=== PATIENT | male | born 1960 | race African-American/Black ===

== ENCOUNTER 2017-01-12 12:06 | Inpatient (IN) | payer OTHER ==
[2017-01-12 13:11] VITALS: BMI 19.2
--- NOTE | 2017-01-12 15:05 | HP ---
COWS - Scale Resting Pulse: 0= [place] 80 or Below Sweatin=Flushed/Facial Moisture Restless Observation: 3= Extraneous Movement Pupil Size: 2= Moderately Dilated Bone or Joint Aches: 2= Severe Diffuse Aches Runny Nose/ Eye Tearin= Runny Nose/Eyes GI Upset > 30mins: 3= Vomiting/Diarrhea Tremor Observation: 2= Slight Tremor Visible Yawning Observation: 1= 1-2x During Session Anxiety or Irritability: 2=Irritable/Anxious Goose Flesh Skin: 0=Smooth Skin COWS Score: 19 Admission ROS BHS - HPI Chief Complaint: i need help to stop using heroin and cocaine Allergies/Adverse Reactions: Allergies Allergy/AdvReac Type Severity Reaction Status Date / Time No Known Allergies Allergy Verified 01/12/17 14:58 History of Present Illness: this 56 years old male with heroin and cocaine dependence,withdrawal symptom, last detox 01/16/16 to 01/21/16 nicotine dependence hiv sine 1997 several admissions in detox before longest period sobriety 1 year Exam Limitations: No Limitations - Ebola screening Have you traveled outside of the country in the last 21 days: No Have you had contact with anyone from an Ebola affected area: No Have you been sick,other than usual withdrawal symptoms: No Do you have a fever: No - Review of Systems Constitutional: Chills, Diaphoresis, Loss of Appetite, Malaise, Night Sweats, Changes in sleep, Weakness, Unintentional Wgt. Loss EENT: reports: Tearing, Nose Congestion Respiratory: reports: Cough (for 2 weeks with yellowish mucous) Cardiac: reports: No Symptoms Reported GI: reports: Diarrhea, Nausea, Vomiting, Abdominal cramping : reports: No Symptoms Reported Musculoskeletal: reports: Back Pain, Joint Pain, Muscle Pain, Joint Stiffness Integumentary: reports: Dryness Neuro: reports: Headache, Tremors Endocrine: reports: No Symptoms Reported Hematology: reports: No Symptoms Reported, Other (hiv) Psychiatric: reports: No Sypmtoms Reported, Mood/Affect Appropiate, Orientated x3 Patient History - Patient Medical History Hx Anemia: No Hx Asthma: No Hx Chronic Obstructive Pulmonary Disease (COPD): No Hx Cancer: No Hx Cardiac Disorders: No Hx Congestive Heart Failure: No Hx Hypertension: No Hx Hypercholesterolemia: No Hx Pacemaker: No HX Cerebrovascular Accident: No Hx Seizures: No Hx Dementia: No Hx Diabetes: No Hx Gastrointestinal Disorders: No Hx Liver Disease: No Hx Genitourinary Disorders: No Hx Sexually Transmitted Disorders: No Hx Renal Disease (ESRD): No Hx Thyroid Disease: No Hx Human Immunodeficiency Virus (HIV): Yes (since 1997, non compliance,no medication for 1 month, ) Hx Hepatitis C: No Hx Depression: No Hx Suicide Attempt: No Hx Bipolar Disorder: No Hx Schizophrenia: No Other Medical History: no suicidal,no homicidal,weight loss - Patient Surgical History Past Surgical History: Yes Hx Neurologic Surgery: No Hx Cataract Extraction: No Hx Cardiac Surgery: No Hx Lung Surgery: No Hx Breast Surgery: No Hx Breast Biopsy: No Hx Abdominal Surgery: No Hx Appendectomy: No Hx Cholecystectomy: No Hx Genitourinary Surgery: No Hx Section: No Hx Orthopedic Surgery: No Other Surgical History: removal of lymph node, right side of neck in 1990 Anesthesia Reaction: No - PPD History Previous Implant?: Yes Documented Results: Negative w/proof Implanted On Prior [facility] Admission?: Yes Date: 01/18/16 Results: 0 mm PPD to be Administered?: No - Smoking Cessation Smoking history: Current every day smoker Have you smoked in the past 12 months: Yes Aproximately how many cigarettes per day: 10 Cigars Per Day: 0 Hx Chewing Tobacco Use: No Initiated information on smoking cessation: Yes 'Breaking Loose' booklet given: 01/12/17 - Substance & Tx. History Hx Alcohol Use: No Hx Substance Use: Yes Substance Use Type: Cocaine, Heroin Hx Substance Use Treatment: Yes ([facility] 01/16/16 to 01/21/16) - Substances Abused Heroin Route: Inhalation Frequency: Daily Amount used: 3 bags Age of first use: 55 Date of Last Use: 01/11/17 Crack Route: Smoking Frequency: Daily Amount used: $60 Age of first use: 36 Date of Last Use: 01/12/17 Family Disease History - Family Disease History Family History: Denies Family Disease History: Other: Grandparent (GGM W/ HTN-) Admission Physical Exam [facility] - Vital Signs Vital Signs: Vital Signs - 24 hr 01/12/17 13:07 Temperature 97.1 F L Pulse Rate 74 Respiratory 18 Rate Blood Pressure 120/86 - Physical General Appearance: Yes: Moderate Distress, Tremorous, Sweating, Anxious HEENTM: Yes: Normocephalic, Pharynx Normal, Nasal Congestion Respiratory: Yes: Lungs Clear, Normal Breath Sounds, No Respiratory Distress Neck: Yes: Within Normal Limits, Supple, Trachea in good position Breast: Yes: Within Normal Limits Cardiology: Yes: Within Normal Limits, Regular Rhythm, Regular Rate, S1, S2 Abdominal: Yes: Within Normal Limits, Normal Bowel Sounds, Non Tender, Flat, Soft Genitourinary: Yes: Within Normal Limits Back: Yes: Muscle Spasm Musculoskeletal: Yes: Back pain, Joint Stiffness, Muscle Pain Extremities: Yes: Normal Range of Motion, Tremors Neurological: Yes: Within Normal Limits, sales vendor II-XII NML intact, Fully Oriented, Alert, Motor Strength 5/5 Integumentary: Yes: Dry Lymphatic: Yes: Within Normal Limits - Diagnostic (1) Cocaine dependence Current Visit: No Status: Acute Comment: . (2) Nicotine dependence Current Visit: No Status: Acute Qualifiers: Nicotine product type: cigarettes Substance use status: uncomplicated Qualified Code(s): F17.210 - Nicotine dependence, cigarettes, uncomplicated Comment: . (3) HIV (human immunodeficiency virus infection) Current Visit: No Status: Chronic Comment: . (4) Opioid dependence with withdrawal Current Visit: No Status: Chronic (5) Rash Current Visit: No Status: Chronic (6) Weight loss Current Visit: Yes Status: Acute (7) Arthritis Current Visit: Yes Status: Acute (8) Use of cane as ambulatory aid Current Visit: Yes Status: Acute Cleared for Admission [facility] - Detox or Rehab [facility] Level of Care: Medically Managed Detox Regimen/Protocol: Methadone [facility] Breath Alcohol Content Breath Alcohol Content: 0 Urine Drug Screen - Results Drug Screen Negative: No Urine Drug Screen Results: PRADEEP-Cocaine, OPI-Opiates
[2017-01-12] MEDS ORDERED: P-EPHED 60MG/TRIPROLIDI 2.5MG TABLET PO PRN (15:19)
[2017-01-12] MEDS ORDERED: ACETAMINOPHEN 325 MG TABLET (FP) PO PRN (15:19)
[2017-01-12] MEDS ORDERED: MAGNESIUM HYDROX 2400MG/30ML ORAL SUSPENSION 30 ML CUP PO PRN (15:19)
[2017-01-12] MEDS ORDERED: MENTHOL/PHENOL 1 EACH UD MM PRN (15:19)
[2017-01-12] MEDS ORDERED: hydrOXYzine PAMOATE 50 MG CAPSULE (FP) PO PRN (15:19)
[2017-01-12] MEDS ORDERED: guaiFENesin/D-METHORPHAN HB 10 ML UNIT-DOSE CUPS PO PRN (15:19)
[2017-01-12] MEDS ORDERED: MAGNESIUM CITRATE 300 ML BOTTLE PO PRN (15:19)
[2017-01-12] MEDS ORDERED: LOPERAMIDE HCL 2 MG CAPSULE PO PRN (15:19)
[2017-01-12] MEDS ORDERED: MAG HYDROX/AL HYDROX/SIMETH 30 ML UNIT-DOSE CUP PO PRN (15:19)
[2017-01-12] MEDS ORDERED: METHADONE HCL 10 MG TABLET (FOR DETOX USE ONLY) PO ONE ×2 (15:29→23:00)
[2017-01-12] MEDS: diazePAM 5 MG TABLET PO PRN (17:22)
[2017-01-12] MEDS: NICOTINE 21 MG/24 HOURS TOPICAL PATCH TD SCH (18:31)
[2017-01-12 18:58] LABS: URINE APPEARANCE CLEAR; URINE BILIRUBIN NEGATIVE (NEGATIVE); URINE BLOOD NEGATIVE (NEGATIVE); URINE COLOR DKYELLOW; URINE GLUCOSE (UA) NEGATIVE (NEGATIVE); URINE KETONE NEGATIVE (NEGATIVE); URINE LEUK ESTERASE NEGATIVE (NEGATIVE); URINE NITRITE NEGATIVE (NEGATIVE); URINE UROBILINOGEN 2.0 E.U/dl E.U./dl (0.2-1.0)
[2017-01-12 19:08] LABS: URINE PROTEIN 1+ (NEGATIVE)
[2017-01-12 19:32] LABS: URINE MUCUS MANY; URINE RBC 1 /hpf (0-3); URINE WBC 1 /hpf (3-5)
[2017-01-12 21:05] LABS: MCH 30.2 pg (25.7-33.7); MCHC 33.3 g/dl (32.0-35.9); MEAN CELL VOLUME 90.6 fl (80-96); MEAN PLT VOLUME 9.8 fl (7.5-11.1); WHITE BLOOD COUNT 2.9 K/mm3 (4.0-10.0)
[2017-01-12] MEDS: THIAMINE HCL 100 MG TABLET (FP) PO SCH (22:19)
[2017-01-12] MEDS: diphenhydrAMINE HCL 50 MG CAPSULE PO PRN (22:20)
[2017-01-13 02:27] LABS: PLATELET COMMENT2 UNABLE TO ENUMERATE; PLATELET COMMENT3 NO CLOTTING DETECTED; PLATELET ESTIMATE ADEQUATE (NORMAL)
[2017-01-13 02:32] LABS: ANISOCYTOSIS FEW; MICROCYTOSIS FEW
[2017-01-13] MEDS ORDERED: METHADONE HCL 10 MG TABLET (FOR DETOX USE ONLY) PO ONE (10:00)
--- NOTE | 2017-01-13 10:27 | PN ---
S COWS - Scale Resting Pulse: 0= [place] 80 or Below Sweatin= Chills/Flushing Restless Observation: 3= Extraneous Movement Pupil Size: 2= Moderately Dilated Bone or Joint Aches: 4=Acute Joint/Muscle Pain Runny Nose/ Eye Tearin= Nasal Congestion GI Upset > 30mins: 1= Stomach Cramp Tremor Observation of Outstretched Hands: 1= Tremor [place], Not Seen Yawning Observation: 1= 1-2x During Session Anxiety or Irritability: 2=Irritable/Anxious Goose Flesh Skin: 0=Smooth Skin COWS Score: 16 S Progress Note (SOAP) Subjective: ANXIETY,SWEATS, Objective: 01/13/17 10:24 Vital Signs Temperature 98.2 F 01/13/17 09:37 Pulse Rate 66 01/13/17 09:37 Respiratory Rate 18 01/13/17 09:37 Blood Pressure 130/91 01/13/17 09:37 O2 Sat by Pulse Oximetry (%) Laboratory Last Values WBC 2.9 K/mm3 (4.0-10.0) L 01/12/17 13:00 RBC 3.91 M/mm3 (4.00-5.60) L 01/12/17 13:00 Hgb 11.8 GM/dL (11.7-16.9) 01/12/17 13:00 Hct 35.4 % (35.4-49) 01/12/17 13:00 MCV 90.6 fl (80-96) 01/12/17 13:00 MCHC 33.3 g/dl (32.0-35.9) 01/12/17 13:00 RDW 14.0 % (11.9-15.9) D 01/12/17 13:00 Plt Count Not Reportable 01/12/17 13:00 MPV 9.8 fl (7.5-11.1) D 01/12/17 13:00 Neutrophils % 36.0 % (42.8-82.8) L D 01/12/17 13:00 Lymphocytes % 40.0 % (8-40) D 01/12/17 13:00 Monocytes % 12.0 % (3.8-10.2) H 01/12/17 13:00 Eosinophils % 10.0 % (0-4.5) H D 01/12/17 13:00 Reactive Lymphocytes 2 % (0-80) 01/12/17 13:00 Platelet Estimate Adequate (NORMAL) 01/12/17 13:00 Platelet Comment Marked plt clumping 01/12/17 13:00 Platelet Comment Unable to enumerate 01/12/17 13:00 Anisocytosis Few 01/12/17 13:00 Microcytosis Few 01/12/17 13:00 Urine Color Dkyellow 01/12/17 16:00 Urine Appearance Clear 01/12/17 16:00 Urine pH 5.0 (5.0-8.0) 01/12/17 16:00 Ur Specific [place] 1.030 (1.001-1.035) 01/12/17 16:00 Urine Protein 1+ (NEGATIVE) H 01/12/17 16:00 Urine Glucose (UA) Negative (NEGATIVE) 01/12/17 16:00 Urine Ketones Negative (NEGATIVE) 01/12/17 16:00 Urine Blood Negative (NEGATIVE) 01/12/17 16:00 Urine Nitrite Negative (NEGATIVE) 01/12/17 16:00 Urine Bilirubin Negative (NEGATIVE) 01/12/17 16:00 Urine Urobilinogen 2.0 e.u/dl E.U./dl (0.2-1.0) 01/12/17 16:00 Ur Leukocyte Esterase Negative (NEGATIVE) 01/12/17 16:00 Urine RBC 1 /hpf (0-3) 01/12/17 16:00 Urine WBC 1 /hpf (3-5) 01/12/17 16:00 Ur Epithelial Cells Rare /hpf (FEW) 01/12/17 16:00 Urine Mucus Many 01/12/17 16:00 Hepatitis C Antibody 0.3 s/co ratio (0.0-0.9) 01/12/17 15:00 Assessment: 01/13/17 10:26 WITHDRAWAL SX Plan: CONTINUE DETOX INCREASE PO FLUIDS
[2017-01-13] MEDS: PRENATAL VITAMINS W/ FOLIC ACID TABLET (FP) PO SCH (10:28)
[2017-01-13] MEDS: NICOTINE 21 MG/24 HOURS TOPICAL PATCH TD SCH (10:29)
[2017-01-13] MEDS: diazePAM 5 MG TABLET PO PRN ×3 (10:30→22:25)
[2017-01-13 12:09] LABS: ALBUMIN 3.4 g/dl (3.4-5.0); ALK PHOS 71 U/L (45-117); ANION GAP 8 (8-16); BILIRUBIN,TOTAL 0.3 mg/dL (0.2-1.0); CO2 29 mmol/L (21-32); CREATININE 0.9 mg/dL (0.7-1.3); GLUCOSE,RANDOM 57 mg/dL (74-106); SGOT/AST 23 U/L (15-37); SGPT/ALT 16 U/L (12-78)
[2017-01-13] MEDS: IBUPROFEN 400 MG TABLET (FP) PO PRN (15:24)
[2017-01-13] MEDS: THIAMINE HCL 100 MG TABLET (FP) PO SCH (22:25)
[2017-01-14] MEDS: diazePAM 5 MG TABLET PO PRN ×4 (06:05→22:28)
[2017-01-14] MEDS ORDERED: METHADONE HCL 5 MG TABLET (FOR DETOX USE ONLY) PO ONE (10:00)
[2017-01-14] MEDS: NICOTINE 21 MG/24 HOURS TOPICAL PATCH TD SCH (10:29)
[2017-01-14] MEDS: PRENATAL VITAMINS W/ FOLIC ACID TABLET (FP) PO SCH (10:29)
--- NOTE | 2017-01-14 11:12 | PN ---
BHS COWS - Scale Resting Pulse: 1= [place] 81-100 Sweatin= Chills/Flushing Restless Observation: 3= Extraneous Movement Pupil Size: 2= Moderately Dilated Bone or Joint Aches: 4=Acute Joint/Muscle Pain Runny Nose/ Eye Tearin= Nasal Congestion GI Upset > 30mins: 0= None Tremor Observation of Outstretched Hands: 2= Slight Tremor Visible Yawning Observation: 1= 1-2x During Session Anxiety or Irritability: 2=Irritable/Anxious Goose Flesh Skin: 0=Smooth Skin COWS Score: 17 BHS Progress Note (SOAP) Subjective: ANXIETY,SWEATS, TREMORS. Objective: 01/14/17 11:12 Vital Signs Temperature 96.7 F L 01/14/17 09:38 Pulse Rate 89 01/14/17 09:38 Respiratory Rate 20 01/14/17 09:38 Blood Pressure 115/82 01/14/17 09:38 O2 Sat by Pulse Oximetry (%) Assessment: 01/14/17 11:12 WITHDRAWAL SX Plan: CONTINUE DETOX
--- NOTE | 2017-01-14 13:20 | EKG ---
Test Reason : Blood Pressure : / mmHG Vent. Rate : 062 BPM Atrial Rate : 062 BPM P-R Int : 130 ms QRS Dur : 070 ms QT Int : 384 ms P-R-T Axes : 081 072 083 degrees QTc Int : 389 ms NORMAL SINUS RHYTHM technically difficult study due to artifacts. POSSIBLE LEFT ATRIAL ENLARGEMENT BORDERLINE ECG NO PREVIOUS ECGS AVAILABLE Confirmed by MANI BELLO MD ([id number]) on 01/14/2017 1:19:50 PM Referred By: Confirmed By:MANI BELLO MD
[2017-01-14] MEDS: THIAMINE HCL 100 MG TABLET (FP) PO SCH (22:26)
[2017-01-14] MEDS: diphenhydrAMINE HCL 50 MG CAPSULE PO PRN (22:28)
[2017-01-15] MEDS ORDERED: METHADONE HCL 5 MG TABLET (FOR DETOX USE ONLY) PO ONE (10:00)
[2017-01-15] MEDS: PRENATAL VITAMINS W/ FOLIC ACID TABLET (FP) PO SCH (10:33)
[2017-01-15] MEDS: NICOTINE 21 MG/24 HOURS TOPICAL PATCH TD SCH (10:33)
--- NOTE | 2017-01-15 12:30 | PN ---
S Progress Note (SOAP) Subjective: ANXIETY,SWEATS,FATIGUE. Objective: 01/15/17 12:30 Vital Signs Temperature 98.3 F 01/15/17 06:52 Pulse Rate 97 H 01/15/17 10:00 Respiratory Rate 18 01/15/17 10:00 Blood Pressure 112/75 01/15/17 10:00 O2 Sat by Pulse Oximetry (%) Laboratory Last Values WBC 2.9 K/mm3 (4.0-10.0) L 01/12/17 13:00 RBC 3.91 M/mm3 (4.00-5.60) L 01/12/17 13:00 Hgb 11.8 GM/dL (11.7-16.9) 01/12/17 13:00 Hct 35.4 % (35.4-49) 01/12/17 13:00 MCV 90.6 fl (80-96) 01/12/17 13:00 MCHC 33.3 g/dl (32.0-35.9) 01/12/17 13:00 RDW 14.0 % (11.9-15.9) D 01/12/17 13:00 Plt Count Not Reportable 01/12/17 13:00 MPV 9.8 fl (7.5-11.1) D 01/12/17 13:00 Neutrophils % 36.0 % (42.8-82.8) L D 01/12/17 13:00 Lymphocytes % 40.0 % (8-40) D 01/12/17 13:00 Monocytes % 12.0 % (3.8-10.2) H 01/12/17 13:00 Eosinophils % 10.0 % (0-4.5) H D 01/12/17 13:00 Reactive Lymphocytes 2 % (0-80) 01/12/17 13:00 Platelet Estimate Adequate (NORMAL) 01/12/17 13:00 Platelet Comment Marked plt clumping 01/12/17 13:00 Platelet Comment Unable to enumerate 01/12/17 13:00 Anisocytosis Few 01/12/17 13:00 Microcytosis Few 01/12/17 13:00 Sodium 141 mmol/L (136-145) 01/12/17 13:00 Potassium 4.1 mmol/L (3.5-5.1) 01/12/17 13:00 Chloride 104 mmol/L (98-107) 01/12/17 13:00 Carbon Dioxide 29 mmol/L (21-32) 01/12/17 13:00 Anion Gap 8 (8-16) 01/12/17 13:00 BUN 18 mg/dL (7-18) D 01/12/17 13:00 Creatinine 0.9 mg/dL (0.7-1.3) 01/12/17 13:00 Creat Clearance w eGFR > 60 (>60) 01/12/17 13:00 Random Glucose 57 mg/dL (74-106) L D 01/12/17 13:00 Calcium 9.0 mg/dL (8.5-10.1) 01/12/17 13:00 Total Bilirubin 0.3 mg/dL (0.2-1.0) D 01/12/17 13:00 AST 23 U/L (15-37) D 01/12/17 13:00 ALT 16 U/L (12-78) 01/12/17 13:00 Alkaline Phosphatase 71 U/L (45-117) 01/12/17 13:00 Total Protein 9.0 g/dl (6.4-8.2) H 01/12/17 13:00 Albumin 3.4 g/dl (3.4-5.0) 01/12/17 13:00 Urine Color Dkyellow 01/12/17 16:00 Urine Appearance Clear 01/12/17 16:00 Urine pH 5.0 (5.0-8.0) 01/12/17 16:00 Ur Specific [place] 1.030 (1.001-1.035) 01/12/17 16:00 Urine Protein 1+ (NEGATIVE) H 01/12/17 16:00 Urine Glucose (UA) Negative (NEGATIVE) 01/12/17 16:00 Urine Ketones Negative (NEGATIVE) 01/12/17 16:00 Urine Blood Negative (NEGATIVE) 01/12/17 16:00 Urine Nitrite Negative (NEGATIVE) 01/12/17 16:00 Urine Bilirubin Negative (NEGATIVE) 01/12/17 16:00 Urine Urobilinogen 2.0 e.u/dl E.U./dl (0.2-1.0) 01/12/17 16:00 Ur Leukocyte Esterase Negative (NEGATIVE) 01/12/17 16:00 Urine RBC 1 /hpf (0-3) 01/12/17 16:00 Urine WBC 1 /hpf (3-5) 01/12/17 16:00 Ur Epithelial Cells Rare /hpf (FEW) 01/12/17 16:00 Urine Mucus Many 01/12/17 16:00 RPR Titer Nonreactive (NONREACTIVE) 01/12/17 13:00 Hepatitis C Antibody 0.3 s/co ratio (0.0-0.9) 01/12/17 15:00 Assessment: 01/15/17 12:30 WITHDRAWAL SX Plan: CONTINUE DETOX
[2017-01-15] MEDS: IBUPROFEN 400 MG TABLET (FP) PO PRN (17:38)
[2017-01-15] MEDS: diphenhydrAMINE HCL 50 MG CAPSULE PO PRN (22:22)
[2017-01-15] MEDS: THIAMINE HCL 100 MG TABLET (FP) PO SCH (22:22)
[2017-01-16] MEDS ORDERED: METHADONE HCL 10 MG TABLET (FOR DETOX USE ONLY) PO ONE (10:00)
[2017-01-16] MEDS: NICOTINE 21 MG/24 HOURS TOPICAL PATCH TD SCH (10:31)
[2017-01-16] MEDS: PRENATAL VITAMINS W/ FOLIC ACID TABLET (FP) PO SCH (10:31)
--- NOTE | 2017-01-16 11:28 | PN ---
BHS Progress Note (SOAP) Subjective: FATIGUE, ANXIETY,IRRITABILITY. Objective: 01/16/17 11:27 Vital Signs Temperature 97.4 F L 01/16/17 10:38 Pulse Rate 56 L 01/16/17 10:38 Respiratory Rate 16 01/16/17 10:38 Blood Pressure 123/81 01/16/17 10:38 O2 Sat by Pulse Oximetry (%) Assessment: 01/16/17 11:27 WITHDRAWAL SX Plan: CONTINUE DETOX
[2017-01-16] MEDS: IBUPROFEN 400 MG TABLET (FP) PO PRN (13:19)
[2017-01-16] MEDS: THIAMINE HCL 100 MG TABLET (FP) PO SCH (22:26)
[2017-01-16] MEDS: diphenhydrAMINE HCL 50 MG CAPSULE PO PRN (22:26)
[2017-01-17] MEDS ORDERED: METHADONE HCL 5 MG TABLET (FOR DETOX USE ONLY) PO ONE (06:00)
[2017-01-17 06:44] VITALS: BP 120/76; PULSE 97; TEMP 95.9
--- NOTE | 2017-01-17 15:50 | DS ---
[facility] Detox Discharge Summary Admission Date: 01/12/17 Discharge Date: 01/17/17 - History Present History: Cocaine Dependence, Opioid Dependence Additional Comments: ADVISED PATIENT TO FOLLOW-UP WITH [facility] / REHAB MEDICAL PROVIDER AFTER DISCHARGE FROM DETOX FOR GENERAL MEDICAL ASSESSMENT AND FOR ANY ABNORMAL ADMISSION LAB VALUES. Pertinent Past History: HIV +. - Physical Exam Results Vital Signs: Vital Signs Temperature 95.9 F L 01/17/17 06:43 Pulse Rate 97 H 01/17/17 06:43 Respiratory Rate 16 01/17/17 06:43 Blood Pressure 120/76 01/17/17 06:43 O2 Sat by Pulse Oximetry (%) Pertinent Admission Physical Exam Findings: WITHDRAWAL SYMPTOMS. Laboratory Last Values WBC 2.9 K/mm3 (4.0-10.0) L 01/12/17 13:00 RBC 3.91 M/mm3 (4.00-5.60) L 01/12/17 13:00 Hgb 11.8 GM/dL (11.7-16.9) 01/12/17 13:00 Hct 35.4 % (35.4-49) 01/12/17 13:00 MCV 90.6 fl (80-96) 01/12/17 13:00 MCHC 33.3 g/dl (32.0-35.9) 01/12/17 13:00 RDW 14.0 % (11.9-15.9) D 01/12/17 13:00 Plt Count Not Reportable 01/12/17 13:00 MPV 9.8 fl (7.5-11.1) D 01/12/17 13:00 Neutrophils % 36.0 % (42.8-82.8) L D 01/12/17 13:00 Lymphocytes % 40.0 % (8-40) D 01/12/17 13:00 Monocytes % 12.0 % (3.8-10.2) H 01/12/17 13:00 Eosinophils % 10.0 % (0-4.5) H D 01/12/17 13:00 Reactive Lymphocytes 2 % (0-80) 01/12/17 13:00 Platelet Estimate Adequate (NORMAL) 01/12/17 13:00 Platelet Comment Marked plt clumping 01/12/17 13:00 Platelet Comment Unable to enumerate 01/12/17 13:00 Anisocytosis Few 01/12/17 13:00 Microcytosis Few 01/12/17 13:00 Sodium 141 mmol/L (136-145) 01/12/17 13:00 Potassium 4.1 mmol/L (3.5-5.1) 01/12/17 13:00 Chloride 104 mmol/L (98-107) 01/12/17 13:00 Carbon Dioxide 29 mmol/L (21-32) 01/12/17 13:00 Anion Gap 8 (8-16) 01/12/17 13:00 BUN 18 mg/dL (7-18) D 01/12/17 13:00 Creatinine 0.9 mg/dL (0.7-1.3) 01/12/17 13:00 Creat Clearance w eGFR > 60 (>60) 01/12/17 13:00 Random Glucose 57 mg/dL (74-106) L D 01/12/17 13:00 Calcium 9.0 mg/dL (8.5-10.1) 01/12/17 13:00 Total Bilirubin 0.3 mg/dL (0.2-1.0) D 01/12/17 13:00 AST 23 U/L (15-37) D 01/12/17 13:00 ALT 16 U/L (12-78) 01/12/17 13:00 Alkaline Phosphatase 71 U/L (45-117) 01/12/17 13:00 Total Protein 9.0 g/dl (6.4-8.2) H 01/12/17 13:00 Albumin 3.4 g/dl (3.4-5.0) 01/12/17 13:00 Urine Color Dkyellow 01/12/17 16:00 Urine Appearance Clear 01/12/17 16:00 Urine pH 5.0 (5.0-8.0) 01/12/17 16:00 Ur Specific [place] 1.030 (1.001-1.035) 01/12/17 16:00 Urine Protein 1+ (NEGATIVE) H 01/12/17 16:00 Urine Glucose (UA) Negative (NEGATIVE) 01/12/17 16:00 Urine Ketones Negative (NEGATIVE) 01/12/17 16:00 Urine Blood Negative (NEGATIVE) 01/12/17 16:00 Urine Nitrite Negative (NEGATIVE) 01/12/17 16:00 Urine Bilirubin Negative (NEGATIVE) 01/12/17 16:00 Urine Urobilinogen 2.0 e.u/dl E.U./dl (0.2-1.0) 01/12/17 16:00 Ur Leukocyte Esterase Negative (NEGATIVE) 01/12/17 16:00 Urine RBC 1 /hpf (0-3) 01/12/17 16:00 Urine WBC 1 /hpf (3-5) 01/12/17 16:00 Ur Epithelial Cells Rare /hpf (FEW) 01/12/17 16:00 Urine Mucus Many 01/12/17 16:00 RPR Titer Nonreactive (NONREACTIVE) 01/12/17 13:00 Hepatitis C Antibody 0.3 s/co ratio (0.0-0.9) 01/12/17 15:00 LABS NOTED. - Treatment Hospital Course: Detox Protocol Followed, Detoxed Safely, Responded well, Discharged Condition Good Patient has Accepted a Rehab Referral to: NO. - Medication Discharge Medications: Ambulatory Orders NK [No Known Home Medication] 01/12/17 - Diagnosis (1) Arthritis Status: Chronic (2) Cocaine dependence Status: Acute (3) Nicotine dependence Status: Chronic Qualifiers: Nicotine product type: cigarettes Substance use status: uncomplicated Qualified Code(s): F17.210 - Nicotine dependence, cigarettes, uncomplicated (4) Use of cane as ambulatory aid Status: Chronic (5) Weight loss Status: Acute (6) Drug-induced mood disorder Status: Chronic (7) Dry skin Status: Chronic (8) HIV (human immunodeficiency virus infection) Status: Chronic (9) Opioid dependence with withdrawal Status: Acute - AMA Did Patient Leave Against Medical Advice: No
== END 2017-01-17 09:41 | disposition home or self-care (01) | DRG 773 ==
LOC: YASAS 12:06 → Y3N 15:21
PROVIDERS: ADMIT Internal Medicine Addiction Medicine; ATTEND Internal Medicine
PROC: HZ2ZZZZ Detoxification Services for Substance Abuse Treatment (ICD-10-PCS; principal; 2017-01-17)
DX: F11.23 Opioid dependence with withdrawal (principal); F14.20 Cocaine dependence, uncomplicated; F17.210 Nicotine dependence, cigarettes, uncomplicated; F19.24 Other psychoactive substance dependence with psychoactive substance-induced mood disorder; L85.3 Xerosis cutis; Z21 Asymptomatic human immunodeficiency virus [HIV] infection status; R63.4 Abnormal weight loss; Z68.1 Body mass index [BMI] 19.9 or less, adult; R26.2 Difficulty in walking, not elsewhere classified
CPT/HCPCS: 36415; 80053; 81003; 81015; 85027; 86593; 93005; 93010

== ENCOUNTER 2017-03-11 16:46 | Inpatient (IN) | payer OTHER ==
[2017-03-11 18:00] VITALS: BMI 19.5
[2017-03-11] MEDS ORDERED: MAGNESIUM HYDROX 2400MG/30ML ORAL SUSPENSION 30 ML CUP PO PRN (19:02)
[2017-03-11] MEDS ORDERED: NICOTINE POLACRILEX 2 MG GUM BC PRN (19:02)
[2017-03-11] MEDS ORDERED: P-EPHED 60MG/TRIPROLIDI 2.5MG TABLET PO PRN (19:02)
[2017-03-11] MEDS ORDERED: MAG HYDROX/AL HYDROX/SIMETH 30 ML UNIT-DOSE CUP PO PRN (19:02)
[2017-03-11] MEDS ORDERED: MAGNESIUM CITRATE 300 ML BOTTLE PO PRN (19:02)
[2017-03-11] MEDS ORDERED: IBUPROFEN 400 MG TABLET (FP) PO PRN (19:02)
[2017-03-11] MEDS ORDERED: guaiFENesin/D-METHORPHAN HB 10 ML UNIT-DOSE CUPS PO PRN (19:02)
[2017-03-11] MEDS ORDERED: LOPERAMIDE HCL 2 MG CAPSULE PO PRN (19:02)
[2017-03-11] MEDS ORDERED: METHADONE HCL 10 MG TABLET (FOR DETOX USE ONLY) PO ONE ×2 (19:02→23:00)
[2017-03-11] MEDS ORDERED: MENTHOL/PHENOL 1 EACH UD MM PRN (19:02)
--- NOTE | 2017-03-11 19:02 | HP ---
COWS - Scale Resting Pulse: 0= [place] 80 or Below Sweatin= Chills/Flushing Restless Observation: 3= Extraneous Movement Pupil Size: 0= Normal to Room Light Bone or Joint Aches: 2= Severe Diffuse Aches Runny Nose/ Eye Tearin= Runny Nose/Eyes GI Upset > 30mins: 2= Nausea/Diarrhea Tremor Observation: 2= Slight Tremor Visible Yawning Observation: 0= None Anxiety or Irritability: 2=Irritable/Anxious Goose Flesh Skin: 0=Smooth Skin COWS Score: 14 Admission [facility] Chief Complaint: WITHDRAWAL SX Allergies/Adverse Reactions: Allergies Allergy/AdvReac Type Severity Reaction Status Date / Time No Known Allergies Allergy Verified 03/11/17 18:36 History of Present Illness: 56 YEARS OLD MALE WITH LONG HISTORY OF OPIOID NICOTINE DEPENDENCE HAS HIV AND DEPRESSION IS ADMITTED TO DETOX Exam Limitations: No Limitations - Ebola screening Have you traveled outside of the country in the last 21 days: No Have you had contact with anyone from an Ebola affected area: No Have you been sick,other than usual withdrawal symptoms: No Do you have a fever: No - Review of Systems Constitutional: Chills, Loss of Appetite, Changes in sleep, Unintentional Wgt. Loss, Unexplained wgt Loss EENT: reports: Dental Problems (DENTURE UPPER AND LOWER AT HOME ABLE TO CHEW FOOD), Other (EYE GLASSES) Respiratory: reports: No Symptoms reported Cardiac: reports: No Symptoms Reported GI: reports: Nausea, Poor Appetite, Poor Fluid Intake, Abdominal cramping : reports: No Symptoms Reported Musculoskeletal: reports: No Symptoms Reported Integumentary: reports: No Symptoms Reported Neuro: reports: Tremors Endocrine: reports: No Symptoms Reported Hematology: reports: No Symptoms Reported Psychiatric: reports: Judgement Intact, Orientated x3, Depressed Other Systems: Reviewed and Negative Patient History - Patient Medical History Hx Anemia: No Hx Asthma: No Hx Chronic Obstructive Pulmonary Disease (COPD): No Hx Cancer: No Hx Cardiac Disorders: No Hx Congestive Heart Failure: No Hx Hypertension: No Hx Hypercholesterolemia: No Hx Pacemaker: No HX Cerebrovascular Accident: No Hx Seizures: No Hx Dementia: No Hx Diabetes: No Hx Gastrointestinal Disorders: No Hx Liver Disease: No Hx Genitourinary Disorders: No Hx Sexually Transmitted Disorders: No Hx Renal Disease (ESRD): No Hx Thyroid Disease: No Hx Human Immunodeficiency Virus (HIV): Yes (since 1997, non compliance,no medication for 1 month, ) Hx Hepatitis C: No Hx Depression: Yes Hx Suicide Attempt: No Hx Bipolar Disorder: No Hx Schizophrenia: No - Patient Surgical History Past Surgical History: Yes Hx Neurologic Surgery: No Hx Cataract Extraction: No Hx Cardiac Surgery: No Hx Lung Surgery: No Hx Breast Surgery: No Hx Breast Biopsy: No Hx Abdominal Surgery: No Hx Appendectomy: No Hx Cholecystectomy: No Hx Genitourinary Surgery: No Hx Orthopedic Surgery: No Other Surgical History: removal of lymph node, right side of neck in 1990 Anesthesia Reaction: No - PPD History Previous Implant?: Yes Documented Results: Negative w/proof Implanted On Prior [facility] Admission?: Yes Date: 01/18/16 Results: 0 mm PPD to be Administered?: Yes - Smoking Cessation Smoking history: Current every day smoker Have you smoked in the past 12 months: Yes Aproximately how many cigarettes per day: 10 Cigars Per Day: 0 Hx Chewing Tobacco Use: No Initiated information on smoking cessation: Yes 'Breaking Loose' booklet given: 03/11/17 - Substance & Tx. History Hx Alcohol Use: No Hx Substance Use: Yes Substance Use Type: Cocaine, Opiates Hx Substance Use Treatment: Yes - Substances Abused Cocaine Route: Smoking Frequency: Daily Amount used: $60 Age of first use: 26 Date of Last Use: 03/10/17 Heroin Route: Inhalation Frequency: Daily Amount used: 6 bags Age of first use: 31 Date of Last Use: 03/10/17 Family Disease History - Family Disease History Family Disease History: Other: Grandparent (GGM W/ HTN-), Father ( ) Admission Physical Exam S - Vital Signs Vital Signs: Vital Signs - 24 hr 03/11/17 17:46 Temperature 98.6 F Pulse Rate 72 Respiratory 18 Rate Blood Pressure 124/81 - Physical General Appearance: Yes: Appropriately Dressed, Mild Distress, Thin, Tremorous, Irritable, Sweating, Anxious HEENTM: Yes: Hearing grossly Normal, Normal ENT Inspection, Normocephalic, Normal Voice Respiratory: Yes: Chest Non-Tender, Lungs Clear, Normal Breath Sounds, No Respiratory Distress, No Accessory Muscle Use Neck: Yes: Supple, Trachea in good position Breast: Yes: Breasts Symetrical Cardiology: Yes: Regular Rhythm, Regular Rate, S1, S2 Abdominal: Yes: Non Tender, Soft Genitourinary: Yes: Within Normal Limits Back: Yes: Normal Inspection Musculoskeletal: Yes: full range of Motion, Gait Steady, Back pain, Muscle Pain Extremities: Yes: Normal Inspection, Normal Range of Motion, Non-Tender, Tremors Neurological: Yes: Fully Oriented, Alert, Motor Strength 5/5, Normal Mood/Affect , Normal Response Integumentary: Yes: Warm Lymphatic: Yes: Within Normal Limits - Diagnostic (1) Depression (emotion) Current Visit: Yes Status: Suspected Qualifiers: Depression Type: dysthymia Qualified Code(s): F34.1 - Dysthymic disorder (2) Opioid dependence with withdrawal Current Visit: Yes Status: Acute (3) Weight loss Current Visit: Yes Status: Acute (4) Dry skin Current Visit: Yes Status: Chronic (5) Nicotine dependence Current Visit: Yes Status: Acute Qualifiers: Nicotine product type: cigarettes Substance use status: in withdrawal Qualified Code(s): F17.213 - Nicotine dependence, cigarettes, with withdrawal Comment: . (6) HIV (human immunodeficiency virus infection) Current Visit: Yes Status: Chronic Comment: . (7) Cocaine dependence, uncomplicated Current Visit: Yes Status: Chronic (8) Cannabis dependence, uncomplicated Current Visit: Yes Status: Chronic Cleared for Admission [facility] - Detox or Rehab [facility] Level of Care: Medically Managed Detox Regimen/Protocol: Methadone [facility] Breath Alcohol Content Breath Alcohol Content: 0 Urine Drug Screen - Results Drug Screen Negative: Yes Urine Drug Screen Results: PRADEEP-Cocaine, OPI-Opiates, OXY-Oxycodone
[2017-03-11] MEDS ORDERED: COLLOIDAL OATMEAL 1 BAR EACH TP PRN (19:09)
[2017-03-11] MEDS: SULFAMETHOXAZOLE/TRIMETHOPRIM 800MG/160MG D.S. TABLET PO SCH (19:55)
[2017-03-11] MEDS: DARUNAVIR ETHANOLATE 800 MG TAB PO SCH (19:55)
[2017-03-11] MEDS: diazePAM 5 MG TABLET PO PRN (19:55)
[2017-03-11] MEDS: diphenhydrAMINE HCL 50 MG CAPSULE PO PRN (22:57)
[2017-03-11] MEDS: THIAMINE HCL 100 MG TABLET (FP) PO SCH (22:57)
[2017-03-11 23:06] LABS: URINE APPEARANCE CLEAR; URINE BILIRUBIN NEGATIVE (NEGATIVE); URINE BLOOD NEGATIVE (NEGATIVE); URINE COLOR YELLOW; URINE GLUCOSE (UA) NEGATIVE (NEGATIVE); URINE KETONE NEGATIVE (NEGATIVE); URINE LEUK ESTERASE NEGATIVE (NEGATIVE); URINE NITRITE NEGATIVE (NEGATIVE); URINE PROTEIN NEGATIVE (NEGATIVE); URINE UROBILINOGEN NEGATIVE E.U./dl (0.2-1.0)
[2017-03-11] MEDS: EMTRICITABINE 200MG/TENOFOVIR 300MG PO SCH (23:38)
[2017-03-11] MEDS: RITONAVIR 100 MG TABLET PO SCH (23:39)
[2017-03-11] MEDS: MINERAL OIL/PETROLAT/WATER TOPICAL CREAM 113 GM JAR TP SCH (23:44)
--- NOTE | 2017-03-12 09:36 | PN ---
BHS COWS - Scale Resting Pulse: 1= [place] 81-100 Sweatin=Flushed/Facial Moisture Restless Observation: 1= Difficult to Sit Still Pupil Size: 0= Normal to Room Light Bone or Joint Aches: 2= Severe Diffuse Aches Runny Nose/ Eye Tearin= Runny Nose/Eyes GI Upset > 30mins: 0= None Tremor Observation of Outstretched Hands: 1= Tremor [place], Not Seen Yawning Observation: 2= >3x During Session Anxiety or Irritability: 1=Feels Anxious/Irritable Goose Flesh Skin: 0=Smooth Skin COWS Score: 12 S Progress Note (SOAP) Subjective: sweats mild shakes interrupted sleep tired Objective: 03/12/17 09:35 Vital Signs Temperature 97.7 F 03/12/17 07:08 Pulse Rate 58 L 03/12/17 07:08 Respiratory Rate 18 03/12/17 07:08 Blood Pressure 140/87 03/12/17 07:08 O2 Sat by Pulse Oximetry (%) Laboratory Tests 03/11/17 23:00 Urine Color Yellow Urine Appearance Clear Urine pH 7.0 D Urine Protein Negative Urine Glucose (UA) Negative Urine Ketones Negative Urine Blood Negative Urine Nitrite Negative Urine Bilirubin Negative Urine Urobilinogen Negative Ur Leukocyte Esterase Negative rest labs pending awake/alert ambulating no acute distress Assessment: 03/12/17 09:36 withdrawal sx Plan: continue detox increase fluids labs pending
[2017-03-12 09:59] LABS: MCH 30.6 pg (25.7-33.7); MCHC 33.8 g/dl (32.0-35.9); MEAN CELL VOLUME 90.8 fl (80-96); MEAN PLT VOLUME 8.9 fl (7.5-11.1); PLATELET COUNT 101 K/MM3 (134-434); RDW 14.8 % (11.9-15.9)
[2017-03-12] MEDS ORDERED: METHADONE HCL 10 MG TABLET (FOR DETOX USE ONLY) PO ONE (10:00)
[2017-03-12] MEDS: PRENATAL VITAMINS W/ FOLIC ACID TABLET (FP) PO SCH (10:15)
[2017-03-12] MEDS: SULFAMETHOXAZOLE/TRIMETHOPRIM 800MG/160MG D.S. TABLET PO SCH (10:16)
[2017-03-12] MEDS: DARUNAVIR ETHANOLATE 800 MG TAB PO SCH (10:16)
[2017-03-12 10:19] LABS: WHITE BLOOD COUNT 1.8 K/mm3 (4.0-10.0)
[2017-03-12 10:20] LABS: ALK PHOS 56 U/L (45-117); ANION GAP 6 (8-16); BILIRUBIN,TOTAL 0.4 mg/dL (0.2-1.0); CALCIUM 8.4 mg/dL (8.5-10.1); CO2 28 mmol/L (21-32); COCKROFT - GAULT 78.53; CREATININE 0.9 mg/dL (0.7-1.3); GLUCOSE,RANDOM 84 mg/dL (74-106); SGOT/AST 23 U/L (15-37); SGPT/ALT 14 U/L (12-78)
[2017-03-12] MEDS: NICOTINE 14 MG/24 HOURS TOPICAL PATCH TD SCH (10:20)
--- NOTE | 2017-03-12 12:01 | CONSULT ---
[facility] Psychiatric Consult - Data Date of interview: 03/12/17 Admission source: [facility] Identifying data: This is 56 years old male with no psychiatric hospitalization history itoxicated with:'. Alcohol, Cannabis, Opioids, Cocaine ,Nicotine Substance Abuse History: Smoking Cessation. Smoking history: Current every day smoker. Have you smoked in the past 12 months: Yes. Aproximately how many cigarettes per day: 10. Cigars Per Day: 0. Hx Chewing Tobacco Use: No. Initiated information on smoking cessation: Yes. 'Breaking Loose' booklet given : 03/11/17. - Substance & Tx. History. Hx Alcohol Use: No. Hx Substance Use: Yes. Substance Use Type: Cocaine, Opiates. Hx Substance Use Treatment: Yes. - Substances Abused. Cocaine. Route: Smoking. Frequency: Daily. Amount used: $60. Age of first use: 26. Date of Last Use: 03/10/17. Heroin. Route: Inhalation. Frequency: Daily. Amount used: 6 bags. Age of first use: 31. Date of Last Use: 03/10/17 Medical History: Weight loss, HIV+, Using cane,wheelchare for ambulation Psychiatric History: Patient reports history of depressiuon, reports no medications taking prior to admission Physical/Sexual Abuse/Trauma History: Denies Additional Comment: Observation. Detox Unit Care Protocol Mental Status Exam - Mental Status Exam Alert and Oriented to: Person Cognitive Function: Fair Patient Appearance: Unkempt Mood: Sad Affect: Flat Patient Behavior: Sedated Speech Pattern: Delayed Voice Loudness: Mildly Soft/Quiet Thought Process: Circumstantial Thought Disorder: Being Controlled Hallucinations: Denies Suicidal Ideation: Denies Homicidal Ideation: Denies Insight/Judgement: Fair Sleep: Difficulty falling asleep Appetite: Weight loss Muscle strength/Tone: Mild Hypotonicity Gait/Station: Shuffling Additional Comments: Observation. Detox Unit Care Protocol Psychiatric Findings - Problem List ([place] 1, 2,3) (1) Nicotine dependence Current Visit: Yes Status: Acute Qualifiers: Nicotine product type: cigarettes Substance use status: in withdrawal Qualified Code(s): F17.213 - Nicotine dependence, cigarettes, with withdrawal Comment: . (2) Opioid dependence with withdrawal Current Visit: Yes Status: Acute (3) Weight loss Current Visit: Yes Status: Acute (4) Cannabis dependence, uncomplicated Current Visit: Yes Status: Chronic (5) Cocaine dependence, uncomplicated Current Visit: Yes Status: Chronic (6) Alcohol dependence Current Visit: No Status: Acute Comment: . (7) Alcohol dependence with uncomplicated withdrawal Current Visit: No Status: Acute (8) Cocaine dependence Current Visit: No Status: Acute Comment: . (9) Opioid dependence Current Visit: No Status: Acute Comment: . (10) Walker as ambulation aid Current Visit: No Status: Acute Comment: . (11) Arthritis Current Visit: No Status: Chronic (12) Drug-induced mood disorder Current Visit: No Status: Chronic Comment: . - Initial Treatment Plan Initial Treatment Plan: Observation. Detox Unit Care Protocol
--- NOTE | 2017-03-12 12:50 | EKG ---
Test Reason : Blood Pressure : / mmHG Vent. Rate : 062 BPM Atrial Rate : 062 BPM P-R Int : 138 ms QRS Dur : 090 ms QT Int : 418 ms P-R-T Axes : 077 068 067 degrees QTc Int : 424 ms NORMAL SINUS RHYTHM POSSIBLE LEFT ATRIAL ENLARGEMENT LEFT VENTRICULAR HYPERTROPHY ABNORMAL ECG WHEN COMPARED WITH ECG OF 12-JAN-2017 16:27, NO SIGNIFICANT CHANGE WAS FOUND Confirmed by DG ORTEGA MD ([id number]) on 03/12/2017 12:49:35 PM Referred By: Confirmed By:DG ORTEGA MD
[2017-03-12] MEDS: EMTRICITABINE 200MG/TENOFOVIR 300MG PO SCH (14:00)
[2017-03-12] MEDS: RITONAVIR 100 MG TABLET PO SCH (14:00)
[2017-03-12] MEDS: ACETAMINOPHEN 325 MG TABLET (FP) PO PRN (21:07)
[2017-03-12] MEDS: THIAMINE HCL 100 MG TABLET (FP) PO SCH (22:09)
[2017-03-12] MEDS: diazePAM 5 MG TABLET PO PRN (22:10)
[2017-03-12] MEDS: MINERAL OIL/PETROLAT/WATER TOPICAL CREAM 113 GM JAR TP SCH (22:50)
[2017-03-13] MEDS ORDERED: METHADONE HCL 5 MG TABLET (FOR DETOX USE ONLY) PO ONE (10:00)
[2017-03-13 10:03] LABS: BASOPHIL 0.8 % (0-2.0); EOSINOPHIL 8.9 % (0-4.5); MCH 30.6 pg (25.7-33.7); MCHC 33.7 g/dl (32.0-35.9); MEAN CELL VOLUME 90.6 fl (80-96); MEAN PLT VOLUME 8.2 fl (7.5-11.1); NEUTROPHILS 56.5 % (42.8-82.8); RDW 14.8 % (11.9-15.9); WHITE BLOOD COUNT 2.5 K/mm3 (4.0-10.0)
[2017-03-13] MEDS: RITONAVIR 100 MG TABLET PO SCH (10:10)
[2017-03-13] MEDS: SULFAMETHOXAZOLE/TRIMETHOPRIM 800MG/160MG D.S. TABLET PO SCH (10:10)
[2017-03-13] MEDS: EMTRICITABINE 200MG/TENOFOVIR 300MG PO SCH (10:10)
[2017-03-13] MEDS: PRENATAL VITAMINS W/ FOLIC ACID TABLET (FP) PO SCH (10:11)
[2017-03-13] MEDS: DARUNAVIR ETHANOLATE 800 MG TAB PO SCH (10:11)
[2017-03-13] MEDS: NICOTINE 14 MG/24 HOURS TOPICAL PATCH TD SCH (10:11)
--- NOTE | 2017-03-13 10:13 | PN ---
BHS COWS - Scale Resting Pulse: 0= [place] 80 or Below Sweatin= Chills/Flushing Restless Observation: 0= Sits Still Pupil Size: 0= Normal to Room Light Bone or Joint Aches: 2= Severe Diffuse Aches Runny Nose/ Eye Tearin= Runny Nose/Eyes GI Upset > 30mins: 1= Stomach Cramp Tremor Observation of Outstretched Hands: 2= Slight Tremor Visible Yawning Observation: 2= >3x During Session Anxiety or Irritability: 1=Feels Anxious/Irritable Goose Flesh Skin: 0=Smooth Skin COWS Score: 11 S Progress Note (SOAP) Subjective: sweats shakes interrupted sleep agitation Objective: 03/13/17 10:11 Vital Signs Temperature 97.9 F 03/13/17 06:00 Pulse Rate 59 L 03/13/17 06:00 Respiratory Rate 16 03/13/17 06:00 Blood Pressure 126/78 03/13/17 06:00 O2 Sat by Pulse Oximetry (%) Laboratory Tests 03/11/17 03/12/17 03/12/17 23:00 07:00 07:00 WBC 1.8 L* D RBC 3.69 L Hgb 11.3 L Hct 33.5 L MCV 90.8 MCHC 33.8 RDW 14.8 Plt Count 101 L MPV 8.9 Sodium 140 Potassium 4.5 Chloride 106 Carbon Dioxide 28 Anion Gap 6 L BUN 14 D Creatinine 0.9 Creat Clearance w eGFR > 60 Random Glucose 84 D Calcium 8.4 L Total Bilirubin 0.4 D AST 23 ALT 14 Alkaline Phosphatase 56 D Total Protein 8.0 Albumin 3.0 L Urine Color Yellow Urine Appearance Clear Urine pH 7.0 D Ur Specific [place] 1.020 Urine Protein Negative Urine Glucose (UA) Negative Urine Ketones Negative Urine Blood Negative Urine Nitrite Negative Urine Bilirubin Negative Urine Urobilinogen Negative Ur Leukocyte Esterase Negative RPR Titer 03/12/17 07:00 WBC RBC Hgb Hct MCV MCHC RDW Plt Count MPV Sodium Potassium Chloride Carbon Dioxide Anion Gap BUN Creatinine Creat Clearance w eGFR Random Glucose Calcium Total Bilirubin AST ALT Alkaline Phosphatase Total Protein Albumin Urine Color Urine Appearance Urine pH Ur Specific [place] Urine Protein Urine Glucose (UA) Urine Ketones Urine Blood Urine Nitrite Urine Bilirubin Urine Urobilinogen Ur Leukocyte Esterase RPR Titer Nonreactive low blood cell 1.8; (leukopenia); labs repeated pt has a h/o of HIV disease awake/alert ambulating no acute distress Assessment: 03/13/17 10:13 withdrawal sx Plan: continue detox increase fluids f/u pending labs
[2017-03-13 10:40] LABS: PLATELET ESTIMATE DECREASED (NORMAL)
[2017-03-13] MEDS: ACETAMINOPHEN 325 MG TABLET (FP) PO PRN (15:39)
[2017-03-13] MEDS: diazePAM 5 MG TABLET PO PRN ×2 (18:01→22:11)
[2017-03-13] MEDS: diphenhydrAMINE HCL 50 MG CAPSULE PO PRN (22:11)
[2017-03-13] MEDS: THIAMINE HCL 100 MG TABLET (FP) PO SCH (22:11)
[2017-03-13] MEDS: MINERAL OIL/PETROLAT/WATER TOPICAL CREAM 113 GM JAR TP SCH (23:54)
[2017-03-14] MEDS ORDERED: METHADONE HCL 5 MG TABLET (FOR DETOX USE ONLY) PO ONE (10:00)
[2017-03-14] MEDS: DARUNAVIR ETHANOLATE 800 MG TAB PO SCH (10:14)
[2017-03-14] MEDS: SULFAMETHOXAZOLE/TRIMETHOPRIM 800MG/160MG D.S. TABLET PO SCH (10:14)
[2017-03-14] MEDS: EMTRICITABINE 200MG/TENOFOVIR 300MG PO SCH (10:14)
[2017-03-14] MEDS: RITONAVIR 100 MG TABLET PO SCH (10:14)
[2017-03-14] MEDS: PRENATAL VITAMINS W/ FOLIC ACID TABLET (FP) PO SCH (10:14)
[2017-03-14] MEDS: diazePAM 5 MG TABLET PO PRN ×2 (10:15→18:30)
[2017-03-14] MEDS: NICOTINE 14 MG/24 HOURS TOPICAL PATCH TD SCH (10:15)
--- NOTE | 2017-03-14 13:27 | PN ---
S Progress Note (SOAP) Subjective: ALERT,IRRITABLE,ANXIOUS,INTERRUPTED SLEEP,TREMOR,ITCHING DERMATITIS SCROTAL AREA Objective: 03/14/17 13:25 Vital Signs Temperature 97.9 F 03/14/17 10:33 Pulse Rate 94 H 03/14/17 10:33 Respiratory Rate 16 03/14/17 10:33 Blood Pressure 108/72 03/14/17 10:33 O2 Sat by Pulse Oximetry (%) 03/14/17 13:25 03/14/17 13:25 Laboratory Last Values WBC 2.5 K/mm3 (4.0-10.0) L D 03/13/17 09:20 RBC 3.72 M/mm3 (4.00-5.60) L 03/13/17 09:20 Hgb 11.4 GM/dL (11.7-16.9) L 03/13/17 09:20 Hct 33.7 % (35.4-49) L 03/13/17 09:20 MCV 90.6 fl (80-96) 03/13/17 09:20 MCHC 33.7 g/dl (32.0-35.9) 03/13/17 09:20 RDW 14.8 % (11.9-15.9) 03/13/17 09:20 Plt Count TNP 03/13/17 09:20 MPV 8.2 fl (7.5-11.1) 03/13/17 09:20 Neutrophils % 56.5 % (42.8-82.8) D 03/13/17 09:20 Lymphocytes % 22.6 % (8-40) D 03/13/17 09:20 Monocytes % 11.2 % (3.8-10.2) H 03/13/17 09:20 Eosinophils % 8.9 % (0-4.5) H 03/13/17 09:20 Basophils % 0.8 % (0-2.0) 03/13/17 09:20 Platelet Estimate Decreased (NORMAL) 03/13/17 09:20 Platelet Comment Marked plt clumping 03/13/17 09:20 Sodium 140 mmol/L (136-145) 03/12/17 07:00 Potassium 4.5 mmol/L (3.5-5.1) 03/12/17 07:00 Chloride 106 mmol/L (98-107) 03/12/17 07:00 Carbon Dioxide 28 mmol/L (21-32) 03/12/17 07:00 Anion Gap 6 (8-16) L 03/12/17 07:00 BUN 14 mg/dL (7-18) D 03/12/17 07:00 Creatinine 0.9 mg/dL (0.7-1.3) 03/12/17 07:00 Creat Clearance w eGFR > 60 (>60) 03/12/17 07:00 Random Glucose 84 mg/dL (74-106) D 03/12/17 07:00 Calcium 8.4 mg/dL (8.5-10.1) L 03/12/17 07:00 Total Bilirubin 0.4 mg/dL (0.2-1.0) D 03/12/17 07:00 AST 23 U/L (15-37) 03/12/17 07:00 ALT 14 U/L (12-78) 03/12/17 07:00 Alkaline Phosphatase 56 U/L (45-117) D 03/12/17 07:00 Total Protein 8.0 g/dl (6.4-8.2) 03/12/17 07:00 Albumin 3.0 g/dl (3.4-5.0) L 03/12/17 07:00 Urine Color Yellow 03/11/17 23:00 Urine Appearance Clear 03/11/17 23:00 Urine pH 7.0 (5.0-8.0) D 03/11/17 23:00 Ur Specific [place] 1.020 (1.005-1.025) 03/11/17 23:00 Urine Protein Negative (NEGATIVE) 03/11/17 23:00 Urine Glucose (UA) Negative (NEGATIVE) 03/11/17 23:00 Urine Ketones Negative (NEGATIVE) 03/11/17 23:00 Urine Blood Negative (NEGATIVE) 03/11/17 23:00 Urine Nitrite Negative (NEGATIVE) 03/11/17 23:00 Urine Bilirubin Negative (NEGATIVE) 03/11/17 23:00 Urine Urobilinogen Negative E.U./dl (0.2-1.0) 03/11/17 23:00 Ur Leukocyte Esterase Negative (NEGATIVE) 03/11/17 23:00 RPR Titer Nonreactive (NONREACTIVE) 03/12/17 07:00 Assessment: 03/14/17 13:26 WITHDRAWAL SYMPTOM Plan: CONTINUE DETOX
[2017-03-14] MEDS: FLUOCINONIDE 0.05% CREAM (60 GM TUBE) TP SCH ×2 (14:46→22:08)
[2017-03-14] MEDS: THIAMINE HCL 100 MG TABLET (FP) PO SCH (22:08)
[2017-03-14] MEDS: MINERAL OIL/PETROLAT/WATER TOPICAL CREAM 113 GM JAR TP SCH (22:10)
[2017-03-14] MEDS: diphenhydrAMINE HCL 50 MG CAPSULE PO PRN (22:10)
[2017-03-15] MEDS ORDERED: METHADONE HCL 10 MG TABLET (FOR DETOX USE ONLY) PO ONE (10:00)
[2017-03-15] MEDS: RITONAVIR 100 MG TABLET PO SCH (10:15)
[2017-03-15] MEDS: FLUOCINONIDE 0.05% CREAM (60 GM TUBE) TP SCH ×2 (10:15→22:06)
[2017-03-15] MEDS: NICOTINE 14 MG/24 HOURS TOPICAL PATCH TD SCH (10:16)
[2017-03-15] MEDS: DARUNAVIR ETHANOLATE 800 MG TAB PO SCH (10:16)
[2017-03-15] MEDS: SULFAMETHOXAZOLE/TRIMETHOPRIM 800MG/160MG D.S. TABLET PO SCH (10:16)
[2017-03-15] MEDS: PRENATAL VITAMINS W/ FOLIC ACID TABLET (FP) PO SCH (10:16)
[2017-03-15] MEDS: EMTRICITABINE 200MG/TENOFOVIR 300MG PO SCH (10:16)
--- NOTE | 2017-03-15 11:06 | PN ---
S Progress Note (SOAP) Subjective: ALERT,IRRITABLE,INTERRUPTED SLEEP Objective: 03/15/17 11:04 Vital Signs Temperature 98.3 F 03/15/17 10:18 Pulse Rate 69 03/15/17 10:18 Respiratory Rate 18 03/15/17 10:18 Blood Pressure 106/78 03/15/17 10:18 O2 Sat by Pulse Oximetry (%) Assessment: 03/15/17 11:05 WITHDRAWAL SYMPTOM Plan: CONTINUE DETOX,DISCHARGE IN AM
[2017-03-15] MEDS: diphenhydrAMINE HCL 50 MG CAPSULE PO PRN (22:06)
[2017-03-15] MEDS: THIAMINE HCL 100 MG TABLET (FP) PO SCH (22:06)
[2017-03-15] MEDS: MINERAL OIL/PETROLAT/WATER TOPICAL CREAM 113 GM JAR TP SCH (22:07)
[2017-03-16 06:24] VITALS: TEMP 98.2
--- NOTE | 2017-03-16 08:51 | DS ---
[facility] Detox Discharge Summary Admission Date: 03/11/17 Discharge Date: 03/16/17 - History Present History: Alcohol Dependence, Cocaine Dependence, Opioid Dependence - Physical Exam Results Vital Signs: Vital Signs Temperature 98.2 F 03/16/17 06:00 Pulse Rate 63 03/16/17 06:00 Respiratory Rate 16 03/16/17 06:00 Blood Pressure 101/56 03/16/17 06:00 O2 Sat by Pulse Oximetry (%) - Treatment Hospital Course: Detox Protocol Followed, Detoxed Safely, Responded well, Discharged Condition Good - Medication Discharge Medications: Ambulatory Orders Darunavir Ethanolate [Prezista -] 600 mg PO DAILY 03/11/17 Emtricitabine/Tenofovir [Truvada] 1 tab PO DAILY 03/11/17 Ritonavir [Norvir] 100 mg PO AM 03/11/17 - Diagnosis (1) Nicotine dependence Current Visit: Yes Status: Acute Qualifiers: Nicotine product type: cigarettes Substance use status: uncomplicated Qualified Code(s): F17.210 - Nicotine dependence, cigarettes, uncomplicated (2) Opioid dependence with withdrawal Current Visit: Yes Status: Chronic (3) Weight loss Current Visit: Yes Status: Chronic (4) Cannabis dependence, uncomplicated Current Visit: Yes Status: Chronic (5) Cocaine dependence, uncomplicated Current Visit: Yes Status: Chronic (6) Dry skin Current Visit: Yes Status: Chronic (7) HIV (human immunodeficiency virus infection) Current Visit: Yes Status: Chronic (8) Depression (emotion) Current Visit: Yes Status: Chronic Qualifiers: Depression Type: dysthymia Qualified Code(s): F34.1 - Dysthymic disorder - AMA Did Patient Leave Against Medical Advice: No
[2017-03-16] MEDS: EMTRICITABINE 200MG/TENOFOVIR 300MG PO SCH (09:34)
[2017-03-16] MEDS: DARUNAVIR ETHANOLATE 800 MG TAB PO SCH (09:34)
[2017-03-16] MEDS: RITONAVIR 100 MG TABLET PO SCH (09:34)
[2017-03-16] MEDS: SULFAMETHOXAZOLE/TRIMETHOPRIM 800MG/160MG D.S. TABLET PO SCH (09:34)
[2017-03-16] MEDS: PRENATAL VITAMINS W/ FOLIC ACID TABLET (FP) PO SCH (09:35)
[2017-03-16] MEDS: FLUOCINONIDE 0.05% CREAM (60 GM TUBE) TP SCH (09:35)
[2017-03-16] MEDS: NICOTINE 14 MG/24 HOURS TOPICAL PATCH TD SCH (09:36)
[2017-03-16 09:43] VITALS: BP 117/74; PULSE 89
== END 2017-03-16 14:00 | disposition home or self-care (01) | DRG 773 ==
LOC: YASAS 16:46 → Y6N 19:02
PROVIDERS: ADMIT Internal Medicine Addiction Medicine; ATTEND Internal Medicine Addiction Medicine
PROC: HZ2ZZZZ Detoxification Services for Substance Abuse Treatment (ICD-10-PCS; principal; 2017-03-16)
DX: F11.23 Opioid dependence with withdrawal (principal); F14.20 Cocaine dependence, uncomplicated; F12.20 Cannabis dependence, uncomplicated; F17.210 Nicotine dependence, cigarettes, uncomplicated; F34.1 Dysthymic disorder; F19.24 Other psychoactive substance dependence with psychoactive substance-induced mood disorder; M12.9 Arthropathy, unspecified; L85.3 Xerosis cutis; R63.4 Abnormal weight loss; Z68.1 Body mass index [BMI] 19.9 or less, adult; R26.89 Other abnormalities of gait and mobility; Z99.89 Dependence on other enabling machines and devices
CPT/HCPCS: 36415; 80053; 81003; 85025; 85027; 86593; 93005; 93010

== ENCOUNTER 2019-04-08 16:49 | Inpatient (IN) | payer OTHER ==
[2019-04-08 21:28] VITALS: BMI 18.7
--- NOTE | 2019-04-08 22:33 | HP ---
"COWS - Scale Resting Pulse: 0= [place] 80 or Below Sweatin=Flushed/Facial Moisture Restless Observation: 1= Difficult to Sit Still Pupil Size: 2= Moderately Dilated (Pupils = 5 mm) Bone or Joint Aches: 0= None Runny Nose/ Eye Tearin= Constantly Teary/Runny GI Upset > 30mins: 0= None Tremor Observation: 4= Gross Tremor/Twitching Yawning Observation: 1= 1-2x During Session Anxiety or Irritability: 1=Feels Anxious/Irritable Goose Flesh Skin: 0=Smooth Skin COWS Score: 15 CIWA Score - Admission Criteria OASAS Guidelines: Admission for Medically Managed Detox: Requires at least one of the followin. CIWA greater than 12 2. Seizures within the past 24 hours 3. Delirium tremens within the past 24 hours 4. Hallucinations within the past 24 hours 5. Acute intervention needed for co occurring medical disorder 6. Acute intervention needed for co occurring psychiatric disorder 7. Severe withdrawal that cannot be handled at a lower level of care (continued vomiting, continued diarrhea, abnormal vital signs) requiring intravenous medication and/or fluids 8. Admission ROS [facility] Chief Complaint: I'm in heroin withdrawal Allergies/Adverse Reactions: Allergies Allergy/AdvReac Type Severity Reaction Status Date / Time No Known Allergies Allergy Verified 04/08/19 21:12 History of Present Illness: 58 years old male last here at [facility] in 2017. Detoxes and rehabs have been at [facility] in [place]. Presents with heroin withdrawal symptoms and requesting detox. Heroin use began at age 19. Daily/intranasal/ has been increasing over past 3 months. Illicit methadone use about once/week. Unsure of dose. Cocaine use began at age 19 and progressed to crack use at about age 21. Nicotine use began at age 19. Hx alcohol use disorder and stopped 6 months ago. PMHx: HIV + since 1997 (did not bring KIV meds), cough, arthritis 03/11/17 EKG: NSR w/ (L) atrial enlargement and LVH MHHx: Denies depression. denies thoughts of harming self or others. Longest period sobriety 1 day. Denies blackouts, seizures, overdose. No Narcan kit at home. Patient Name: Eric Sampson Date: 1960 Address: [address] [place], [place] [id number] Sex: Male Rx Written Rx Dispensed Drug Quantity Days Supply Prescriber Name 08/16/2018 08/16/2018 methadone hcl 10 mg tablet 11 5 Bernard, Zane Riojas Search Terms: Eric Sampson, 1960 Search Date: 04/08/2019 10:32:29 PM States Searched: [place], [place], [place], [place], [place], [place], [place] The Drug Utilization Report below displays the controlled substance prescriptions, if any, that were dispensed in the indicated state(s). The information displayed on this report is compiled from requests submitted to other states' PMPs, and accurately reflects the information as returned by them. Blank nelson indicate data not provided by other state. This report was requested by: Bernarda Logan | Reference #: [id number] Exam Limitations: No Limitations - Ebola screening Have you traveled outside of the country in the last 21 days: No (N) Have you had contact with anyone from an Ebola affected area: No Have you been sick,other than usual withdrawal symptoms: No (Denies recent exposure to measles) Do you have a fever: No - Review of Systems Constitutional: Chills, Diaphoresis, Unintentional Wgt. Loss EENT: reports: Blurred Vision, Tearing, Nose Congestion Respiratory: reports: Cough (Cough x 2 months) Cardiac: reports: No Symptoms Reported GI: reports: No Symptoms Reported : reports: No Symptoms Reported Musculoskeletal: reports: No Symptoms Reported Integumentary: reports: No Symptoms Reported Neuro: reports: No Symptoms reported Endocrine: reports: No Symptoms Reported Hematology: reports: Other (HIV (+)) Psychiatric: reports: Judgement Intact, Disorientated (Unsure of month/date/year ) Other Systems: Reviewed and Negative Patient History - Patient Medical History Hx Anemia: No Hx Asthma: No Hx Chronic Obstructive Pulmonary Disease (COPD): No Hx Cancer: No Hx Cardiac Disorders: No Hx Congestive Heart Failure: No Hx Hypertension: No Hx Hypercholesterolemia: No Hx Pacemaker: No HX Cerebrovascular Accident: No Hx Seizures: No Hx Dementia: No Hx Diabetes: No Hx Gastrointestinal Disorders: No Hx Liver Disease: No Hx Genitourinary Disorders: No Hx Sexually Transmitted Disorders: No Hx Renal Disease (ESRD): No Hx Thyroid Disease: No Hx Human Immunodeficiency Virus (HIV): Yes (since 1997, non compliance,no medication for 1 month, ) Hx Hepatitis C: No Hx Depression: Yes Hx Suicide Attempt: No Hx Bipolar Disorder: No Hx Schizophrenia: No - Patient Surgical History Past Surgical History: Yes Hx Neurologic Surgery: No Hx Cataract Extraction: No Hx Cardiac Surgery: No Hx Lung Surgery: No Hx Breast Surgery: No Hx Breast Biopsy: No Hx Abdominal Surgery: No Hx Appendectomy: No Hx Cholecystectomy: No Hx Genitourinary Surgery: No Hx Section: No Hx Orthopedic Surgery: No Other Surgical History: removal of lymph node, right side of neck in 1990 Anesthesia Reaction: No - PPD History Previous Implant?: Yes Documented Results: Negative w/proof Implanted On Prior [facility] Admission?: Yes Date: 03/13/17 Results: 0 mm PPD to be Administered?: Yes - Smoking Cessation Smoking history: Current every day smoker Have you smoked in the past 12 months: Yes Aproximately how many cigarettes per day: 10 Cigars Per Day: 0 Hx Chewing Tobacco Use: No Initiated information on smoking cessation: Yes 'Breaking Loose' booklet given: 04/08/19 - Substance & Tx. History Hx Alcohol Use: No Hx Substance Use: Yes Substance Use Type: Cocaine, Heroin, Opiates (Illicit Methadone use ) Hx Substance Use Treatment: Yes (detox, rehab) - Substances abused Heroin Substance route: Inhalation Frequency: Daily Amount used: 6 bags Age of first use: 19 Date of last use: 04/07/19 Crack Substance route: Smoking Frequency: Daily Amount used: 2 bags Age of first use: 19 Date of last use: 04/07/19 Cocaine Substance route: Smoking Frequency: Daily Amount used: 2 bags Age of first use: 19 Date of last use: 04/07/19 Non-Rx Methadone Substance route: Oral Frequency: 1-2 times per week Amount used: unsure of dose Age of first use: 58 Date of last use: 04/02/19 Family Disease History - Family Disease History Family Disease History: Other: Grandparent (GGM W/ HTN-), Father ( ) Admission Physical Exam S - Vital Signs Vital Signs: Vital Signs - 24 hr 04/08/19 21:21 Temperature 98.3 F Pulse Rate 61 Respiratory 18 Rate Blood Pressure 122/77 - Physical General Appearance: Yes: Mild Distress, Thin, Tremorous, Sweating (Increased facial moisture) HEENTM: Yes: EOMI (Jerking movement of eyes on (R) lateral gaze.), Hearing grossly Normal, Normocephalic, Normal Voice, ES (Pupils = 5 mm), Pharynx Normal, Nasal Congestion, Rhinorrhea, Other (tearing) Respiratory: Yes: Lungs Clear, Normal Breath Sounds, No Respiratory Distress, Other (Cough productive of yeloowish phlegm) Neck: Yes: No masses,lesions,Nodules, Supple Cardiology: Yes: Regular Rate, S1, S2 Abdominal: Yes: Non Tender, Flat, Soft, Increased Bowel Sounds Genitourinary: Yes: Within Normal Limits Back: Yes: Normal Inspection Musculoskeletal: Yes: full range of Motion, Joint Stiffness (Slight stffness both knees but completes FROM) Extremities: Yes: Normal Capillary Refill, Tremors (Mild tremors) Neurological: Yes: 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 Knows where and why he's at (i.e. [facility])) Integumentary: Yes: Normal Color, Warm, Diaphoresis, Rash (papular facial rash) Lymphatic: Yes: Within Normal Limits - Diagnostic (1) Cough Current Visit: Yes Status: Chronic (2) Nicotine dependence Current Visit: Yes Status: Chronic Qualifiers: Nicotine product type: cigarettes Substance use status: uncomplicated Qualified Code(s): F17.210 - Nicotine dependence, cigarettes, uncomplicated Comment: . (3) Arthritis Current Visit: Yes Status: Chronic Comment: Both knees (4) Cocaine dependence, uncomplicated Current Visit: Yes Status: Chronic (5) Dry skin Current Visit: Yes Status: Chronic (6) HIV (human immunodeficiency virus infection) Current Visit: Yes Status: Chronic Qualifiers: HIV symptom status: unspecified Qualified Code(s): B20 - Human immunodeficiency virus [HIV] disease Comment: . (7) Opioid dependence with withdrawal Current Visit: Yes Status: Acute (8) Rash Current Visit: Yes Status: Chronic Comment: Facial (9) Use of cane as ambulatory aid Current Visit: Yes Status: Chronic (10) Weight loss Current Visit: Yes Status: Chronic Cleared for Admission S - Detox or Rehab [facility] Level of Care: Medically Managed Detox Regimen/Protocol: Methadone Claeared for Rehab Admission: No Breathalyzer - Breathalyzer Breathalyzer: 0 Urine Drug Screen - Test Device Lot number: [id number] Expiration date: 12/30/20 - Control Is test valid?: Yes - Results Drug screen NEGATIVE: No Urine drug screen results: PRADEEP-Cocaine, MOP-Opiates, MTD-Methadone Inpatient Rehab Admission - Rehab Decision to Admit Inpatient rehab admission?: No"
[2019-04-08] MEDS ORDERED: clonazePAM 0.5 MG TABLET PO PRN (23:06)
[2019-04-08] MEDS ORDERED: ACETAMINOPHEN 325 MG TABLET (FP) PO PRN ×2 (23:06)
[2019-04-08] MEDS ORDERED: MENTHOL/PHENOL 1 EACH UD MM PRN (23:06)
[2019-04-08] MEDS ORDERED: MAGNESIUM CITRATE 300 ML BOTTLE PO PRN (23:06)
[2019-04-08] MEDS ORDERED: METHOCARBAMOL 500 MG TABLET PO PRN (23:06)
[2019-04-08] MEDS ORDERED: BISMUTH SUBSALICYLATE 524 MG/30 ML UD PO PRN (23:06)
[2019-04-08] MEDS ORDERED: MAG HYDROX/AL HYDROX/SIMETH 30 ML UNIT-DOSE CUP PO PRN (23:06)
[2019-04-08] MEDS ORDERED: IBUPROFEN 400 MG TABLET (FP) PO PRN (23:06)
[2019-04-08] MEDS ORDERED: MAGNESIUM HYDROX 2400MG/30ML ORAL SUSPENSION 30 ML CUP PO PRN (23:06)
[2019-04-08] MEDS ORDERED: MELATONIN 5 MG TABLETS PO PRN (23:06)
[2019-04-08] MEDS ORDERED: NICOTINE POLACRILEX 2 MG GUM BUC PRN (23:06)
[2019-04-08] MEDS ORDERED: cloNIDine HCL 0.1 MG TABLET PO PRN (23:06)
[2019-04-08] MEDS ORDERED: METHADONE HCL 10 MG TABLET (FOR DETOX USE ONLY) PO ONE (23:06)
[2019-04-08] MEDS ORDERED: HYDROCORTISONE 1% TOPICAL CREAM 30 GM TUBE TP PRN (23:17)
[2019-04-09] MEDS: guaiFENesin 200 MG/10 ML 10 ML UNIT-DOSE CUPS PO SCH ×4 (00:43→17:51)
--- NOTE | 2019-04-09 08:38 | EKG ---
Test Reason : Blood Pressure : / mmHG Vent. Rate : 062 BPM Atrial Rate : 062 BPM P-R Int : 136 ms QRS Dur : 080 ms QT Int : 422 ms P-R-T Axes : 080 061 062 degrees QTc Int : 428 ms SINUS RHYTHM WITH PREMATURE ATRIAL COMPLEXES VOLTAGE CRITERIA FOR LEFT VENTRICULAR HYPERTROPHY ABNORMAL ECG WHEN COMPARED WITH ECG OF 11-MAR-2017 19:03, PREMATURE ATRIAL COMPLEXES ARE NOW PRESENT Confirmed by EUGENIA WILKINSON, MANI ([id number]) on 04/09/2019 8:37:59 AM Referred By: JAROD AMADO Confirmed By:MANI BELLO MD
[2019-04-09] MEDS ORDERED: METHADONE HCL 10 MG TABLET (FOR DETOX USE ONLY) PO ONE (10:00)
[2019-04-09] MEDS: PRENATAL VITAMINS W/ FOLIC ACID TABLET (FP) PO SCH (10:25)
[2019-04-09] MEDS: SULFAMETHOXAZOLE/TRIMETHOPRIM 800MG/160MG D.S. TABLET PO SCH (10:25)
[2019-04-09] MEDS: NICOTINE 14 MG/24 HOURS TOPICAL PATCH TD SCH (10:26)
[2019-04-09 10:28] LABS: URINE APPEARANCE CLOUDY; URINE BILIRUBIN NEGATIVE (NEGATIVE); URINE COLOR YELLOW; URINE GLUCOSE (UA) NEGATIVE (NEGATIVE); URINE KETONE NEGATIVE (NEGATIVE); URINE LEUK ESTERASE NEGATIVE (NEGATIVE); URINE NITRITE NEGATIVE (NEGATIVE); URINE PROTEIN TRACE (NEGATIVE); URINE UROBILINOGEN 0.2 mg/dL (0.2-1.0)
[2019-04-09 11:05] LABS: BILIRUBIN,TOTAL 0.3 mg/dL (0.2-1); BLOOD UREA NITROGEN 17.2 mg/dL (7-18); CALCIUM 8.3 mg/dL (8.5-10.1); CREATININE 0.8 mg/dL (0.55-1.3); POTASSIUM 3.8 mmol/L (3.5-5.1); TOT PROT 8.5 g/dl (6.4-8.2)
[2019-04-09 11:57] LABS: HEMATOCRIT 31.7 % (35.4-49); HEMOGLOBIN 10.8 GM/dL (11.7-16.9); MCH 30.1 pg (25.7-33.7); MCHC 34.1 g/dl (32.0-35.9); MEAN CELL VOLUME 88.2 fl (80-96); RBC 3.59 M/mm3 (4.00-5.60); RDW 13.8 % (11.9-15.9); WHITE BLOOD COUNT 3.4 K/mm3 (4.0-10.0)
--- NOTE | 2019-04-09 12:28 | PN ---
BHS COWS - Scale Resting Pulse: 0= [place] 80 or Below Sweatin= Chills/Flushing Restless Observation: 0= Sits Still Pupil Size: 0= Normal to Room Light Bone or Joint Aches: 2= Severe Diffuse Aches Runny Nose/ Eye Tearin= None GI Upset > 30mins: 0= None Tremor Observation of Outstretched Hands: 2= Slight Tremor Visible Yawning Observation: 2= >3x During Session Anxiety or Irritability: 2=Irritable/Anxious Goose Flesh Skin: 0=Smooth Skin COWS Score: 9 BHS Progress Note (SOAP) Subjective: body aches sweats tired interrupted sleep Objective: 04/09/19 12:26 Vital Signs Temperature 100.4 F H 04/09/19 09:38 Pulse Rate 78 04/09/19 09:38 Respiratory Rate 20 04/09/19 09:38 Blood Pressure 119/66 04/09/19 09:38 O2 Sat by Pulse Oximetry (%) Laboratory Tests 04/09/19 04/09/19 04/09/19 08:00 08:00 08:00 WBC 3.4 L RBC 3.59 L Hgb 10.8 L Hct 31.7 L MCV 88.2 MCH 30.1 MCHC 34.1 RDW 13.8 Sodium 137 Potassium 3.8 Chloride 107 Carbon Dioxide 27 Anion Gap 3 L BUN 17.2 Creatinine 0.8 Est GFR (CKD-EPI)AfAm 114.93 Est GFR (CKD-EPI)NonAf 99.16 Random Glucose 106 Calcium 8.3 L Total Bilirubin 0.3 AST 38 H ALT 23 Alkaline Phosphatase 70 Total Protein 8.5 H Albumin 3.0 L Urine Color Urine Appearance Urine pH Ur Specific [place] Urine Protein Urine Glucose (UA) Urine Ketones Urine Blood Urine Nitrite Urine Bilirubin Urine Urobilinogen Ur Leukocyte Esterase RPR Titer Nonreactive 04/09/19 08:20 WBC RBC Hgb Hct MCV MCH MCHC RDW Sodium Potassium Chloride Carbon Dioxide Anion Gap BUN Creatinine Est GFR (CKD-EPI)AfAm Est GFR (CKD-EPI)NonAf Random Glucose Calcium Total Bilirubin AST ALT Alkaline Phosphatase Total Protein Albumin Urine Color Yellow Urine Appearance Cloudy Urine pH 6.0 Ur Specific [place] 1.024 Urine Protein Trace Urine Glucose (UA) Negative Urine Ketones Negative Urine Blood Negative Urine Nitrite Negative Urine Bilirubin Negative Urine Urobilinogen 0.2 Ur Leukocyte Esterase Negative RPR Titer labs noted low H:H; will order iron supplement [id number] ambulating no acute distress Assessment: 04/09/19 12:27 withdrawal sx Plan: continue detox increase fluids iron supplement ordered repeat labs
[2019-04-09] MEDS: FERROUS SO4 325 MG TABLET (FP) PO SCH (16:52)
[2019-04-09 16:58] LABS: MEAN PLT VOLUME 8.9 fl (7.5-11.1)
[2019-04-09] MEDS: THIAMINE HCL 100 MG TABLET (FP) PO SCH (22:42)
[2019-04-10] MEDS: guaiFENesin 200 MG/10 ML 10 ML UNIT-DOSE CUPS PO SCH ×5 (00:05→23:21)
[2019-04-10] MEDS ORDERED: METHADONE HCL 10 MG TABLET (FOR DETOX USE ONLY) PO ONE (06:00)
[2019-04-10] MEDS: FERROUS SO4 325 MG TABLET (FP) PO SCH ×3 (07:56→17:17)
[2019-04-10] MEDS ORDERED: METHADONE HCL 5 MG TABLET (FOR DETOX USE ONLY) PO ONE ×2 (10:00)
[2019-04-10] MEDS: PRENATAL VITAMINS W/ FOLIC ACID TABLET (FP) PO SCH (10:19)
[2019-04-10] MEDS: NICOTINE 14 MG/24 HOURS TOPICAL PATCH TD SCH (10:19)
[2019-04-10] MEDS: SULFAMETHOXAZOLE/TRIMETHOPRIM 800MG/160MG D.S. TABLET PO SCH (10:19)
[2019-04-10 11:05] LABS: BASO % 1.5 % (0-2.0); EOS % 7.4 % (0-4.5); HEMATOCRIT 31.8 % (35.4-49); HEMOGLOBIN 10.6 GM/dL (11.7-16.9); LYMPH % 26.4 % (8-40); MCH 29.4 pg (25.7-33.7); MCHC 33.4 g/dl (32.0-35.9); MEAN CELL VOLUME 87.9 fl (80-96); MONO % 9.1 % (3.8-10.2); NEUT % 55.6 % (42.8-82.8); RBC 3.61 M/mm3 (4.00-5.60); RDW 13.9 % (11.9-15.9)
[2019-04-10 11:26] LABS: WHITE BLOOD COUNT 1.7 K/mm3 (4.0-10.0)
[2019-04-10 14:24] LABS: ANISOCYTOSIS 2+; MACROCYTOSIS 0; PLATELET ESTIMATE DECREASED
--- NOTE | 2019-04-10 14:50 | PN ---
[facility] COWS - Scale Resting Pulse: 1= DE 81-100 Sweatin= Chills/Flushing Restless Observation: 3= Extraneous Movement Pupil Size: 0= Normal to Room Light Bone or Joint Aches: 2= Severe Diffuse Aches Runny Nose/ Eye Tearin= Runny Nose/Eyes GI Upset > 30mins: 1= Stomach Cramp Tremor Observation of Outstretched Hands: 2= Slight Tremor Visible Yawning Observation: 0= None Anxiety or Irritability: 1=Feels Anxious/Irritable Goose Flesh Skin: 0=Smooth Skin COWS Score: 13 S Progress Note (SOAP) Subjective: Constipation x 2 days (instructed to notify RN but he didn't; manual writer spoke with RN who will speak with patient; he agreed to take citroma); lots of sweating. Objective: 04/10/19 14:47 Last Vital Signs Temp Pulse Resp BP Pulse Ox 98.1 F 96 H 16 128/72 04/10/19 14:00 04/10/19 14:00 04/10/19 14:00 04/10/19 14:00 Laboratory Tests 04/09/19 04/09/19 04/09/19 08:00 08:00 08:00 WBC 3.4 L RBC 3.59 L Hgb 10.8 L Hct 31.7 L MCV 88.2 MCH 30.1 MCHC 34.1 RDW 13.8 Plt Count No Result Required. MPV 8.9 Absolute Neuts (auto) Neutrophils % Neutrophils % (Manual) Band Neutrophils % Lymphocytes % Lymphocytes % (Manual) Monocytes % Monocytes % (Manual) Eosinophils % Eosinophils % (Manual) Basophils % Basophils % (Manual) Myelocytes % (Man) Promyelocytes % (Man) Blast Cells % (Manual) Nucleated RBC % Metamyelocytes Manual Slide Review Plt.clumping Hypochromia Platelet Estimate Platelet Comment Plt.dec. Polychromasia Poikilocytosis Anisocytosis Microcytosis Macrocytosis Sodium 137 Potassium 3.8 Chloride 107 Carbon Dioxide 27 Anion Gap 3 L BUN 17.2 Creatinine 0.8 Est GFR (CKD-EPI)AfAm 114.93 Est GFR (CKD-EPI)NonAf 99.16 Random Glucose 106 Calcium 8.3 L Total Bilirubin 0.3 AST 38 H ALT 23 Alkaline Phosphatase 70 Total Protein 8.5 H Albumin 3.0 L Urine Color Urine Appearance Urine pH Ur Specific [place] Urine Protein Urine Glucose (UA) Urine Ketones Urine Blood Urine Nitrite Urine Bilirubin Urine Urobilinogen Ur Leukocyte Esterase RPR Titer Nonreactive 04/09/19 04/10/19 08:20 07:30 WBC 1.7 L* RBC 3.61 L Hgb 10.6 L Hct 31.8 L MCV 87.9 MCH 29.4 MCHC 33.4 RDW 13.9 Plt Count MPV 9.0 Absolute Neuts (auto) 1.0 L Neutrophils % 55.6 Neutrophils % (Manual) 52.9 Band Neutrophils % 3.8 Lymphocytes % 26.4 Lymphocytes % (Manual) 23.1 Monocytes % 9.1 Monocytes % (Manual) 9 Eosinophils % 7.4 H Eosinophils % (Manual) 7.7 H Basophils % 1.5 Basophils % (Manual) 0.0 Myelocytes % (Man) 0 Promyelocytes % (Man) 0 Blast Cells % (Manual) 0 Nucleated RBC % 0 Metamyelocytes 0 Manual Slide Review Hypochromia 0 Platelet Estimate Decreased Platelet Comment Polychromasia 2+ Poikilocytosis 0 Anisocytosis 2+ Microcytosis 1+ Macrocytosis 0 Sodium Potassium Chloride Carbon Dioxide Anion Gap BUN Creatinine Est GFR (CKD-EPI)AfAm Est GFR (CKD-EPI)NonAf Random Glucose Calcium Total Bilirubin AST ALT Alkaline Phosphatase Total Protein Albumin Urine Color Yellow Urine Appearance Cloudy Urine pH 6.0 Ur Specific [place] 1.024 Urine Protein Trace Urine Glucose (UA) Negative Urine Ketones Negative Urine Blood Negative Urine Nitrite Negative Urine Bilirubin Negative Urine Urobilinogen 0.2 Ur Leukocyte Esterase Negative RPR Titer Labs reviewed: pancytopenia noted Assessment: 04/10/19 14:50 Withdrawal symptoms Plan: Continue detox Encouraged PO water hydration As per RN, patient stated he is no longer constipated and that he used the bathroom. Pancytopenia, chronic: most likely r/t substance use, encouraged good hand washing due to leukopenia, follow up with PCP for monitoring
[2019-04-10] MEDS: THIAMINE HCL 100 MG TABLET (FP) PO SCH (22:22)
[2019-04-11] MEDS ORDERED: METHADONE HCL 10 MG TABLET (FOR DETOX USE ONLY) PO ONE ×2 (06:00→10:00)
[2019-04-11] MEDS: guaiFENesin 200 MG/10 ML 10 ML UNIT-DOSE CUPS PO SCH (06:24)
[2019-04-11] MEDS ORDERED: METHADONE HCL 5 MG TABLET (FOR DETOX USE ONLY) PO ONE (06:30)
[2019-04-11] MEDS: FERROUS SO4 325 MG TABLET (FP) PO SCH (07:00)
--- NOTE | 2019-04-11 08:50 | DS ---
[facility] Detox Discharge Summary Admission Date: 04/08/19 Discharge Date: 04/11/19 - History Present History: Alcohol Dependence, Cocaine Dependence, Opioid Dependence - Physical Exam Results Vital Signs: Vital Signs Temperature 98.4 F 04/11/19 06:44 Pulse Rate 65 04/11/19 06:44 Respiratory Rate 18 04/11/19 06:44 Blood Pressure 115/63 04/11/19 06:44 O2 Sat by Pulse Oximetry (%) - Treatment Hospital Course: Detox Protocol Followed, Detoxed Safely, Responded well, Discharged Condition Good, Rehab Referral Accepted - Medication Discharge Medications: Ambulatory Orders Sulfamethoxazole/Trimethoprim [Bactrim DS -] 1 each PO DAILY #30 tablet Descovy 200-25 mg Tablet (Nf) 1 tablet PO DAILY 04/08/19 Megestrol Acetate Oral Susp 40 mg PO DAILY 04/08/19 Prezcobix 800 mg-150 mg Tablet 1 tablet PO DAILY 04/08/19 - Diagnosis (1) Opioid dependence with withdrawal Current Visit: Yes Status: Chronic (2) Arthritis Current Visit: Yes Status: Chronic (3) Cocaine dependence, uncomplicated Current Visit: Yes Status: Chronic (4) Cough Current Visit: Yes Status: Chronic (5) Dry skin Current Visit: Yes Status: Chronic (6) HIV (human immunodeficiency virus infection) Current Visit: Yes Status: Chronic Qualifiers: HIV symptom status: unspecified Qualified Code(s): B20 - Human immunodeficiency virus [HIV] disease (7) Nicotine dependence Current Visit: Yes Status: Chronic Qualifiers: Nicotine product type: cigarettes Substance use status: uncomplicated Qualified Code(s): F17.210 - Nicotine dependence, cigarettes, uncomplicated (8) Use of cane as ambulatory aid Current Visit: Yes Status: Chronic (9) Alcohol dependence with uncomplicated withdrawal Current Visit: No Status: Acute (10) Cocaine dependence Current Visit: Yes Status: Chronic (11) Walker as ambulation aid Current Visit: No Status: Acute (12) Cannabis dependence, uncomplicated Current Visit: No Status: Chronic (13) Depression (emotion) Current Visit: No Status: Chronic Qualifiers: Depression Type: dysthymia Qualified Code(s): F34.1 - Dysthymic disorder (14) Drug-induced mood disorder Current Visit: No Status: Chronic - AMA Did Patient Leave Against Medical Advice: No (pt declined aftercare; referred to his PCP)
[2019-04-11 09:17] VITALS: BP 127/69; PULSE 67; TEMP 98.8
[2019-04-11] MEDS: NICOTINE 14 MG/24 HOURS TOPICAL PATCH TD SCH (10:56)
[2019-04-11] MEDS: PRENATAL VITAMINS W/ FOLIC ACID TABLET (FP) PO SCH (10:56)
[2019-04-11] MEDS: SULFAMETHOXAZOLE/TRIMETHOPRIM 800MG/160MG D.S. TABLET PO SCH (10:56)
[2019-04-12] MEDS ORDERED: METHADONE HCL 5 MG TABLET (FOR DETOX USE ONLY) PO ONE (06:00)
== END 2019-04-11 12:23 | disposition other institution (70) | DRG 773 ==
LOC: YASAS 16:49 → Y6N 23:21
PROVIDERS: ADMIT Surgery; ATTEND Surgery
PROC: HZ2ZZZZ Detoxification Services for Substance Abuse Treatment (ICD-10-PCS; principal; 2019-04-08)
DX: F11.23 Opioid dependence with withdrawal (principal); F10.230 Alcohol dependence with withdrawal, uncomplicated; F14.20 Cocaine dependence, uncomplicated; F12.20 Cannabis dependence, uncomplicated; F34.1 Dysthymic disorder; F19.24 Other psychoactive substance dependence with psychoactive substance-induced mood disorder; Z21 Asymptomatic human immunodeficiency virus [HIV] infection status; R05 Cough; L85.3 Xerosis cutis; M12.9 Arthropathy, unspecified; Z99.89 Dependence on other enabling machines and devices
CPT/HCPCS: 36415; 80053; 81003; 85025; 85027; 86593; 93005; 93010

== ENCOUNTER 2019-04-11 12:30 | Inpatient (IN) | payer OTHER ==
[2019-04-11] MEDS ORDERED: MAG HYDROX/AL HYDROX/SIMETH 30 ML UNIT-DOSE CUP PO PRN (15:07)
[2019-04-11] MEDS ORDERED: MAGNESIUM CITRATE 300 ML BOTTLE PO PRN (15:07)
[2019-04-11] MEDS ORDERED: P-EPHED 60MG/TRIPROLIDI 2.5MG TABLET PO PRN (15:07)
[2019-04-11] MEDS ORDERED: MAGNESIUM HYDROX 2400MG/30ML ORAL SUSPENSION 30 ML CUP PO PRN (15:07)
[2019-04-11] MEDS ORDERED: ACETAMINOPHEN 325 MG TABLET (FP) PO PRN (15:07)
[2019-04-11] MEDS ORDERED: LOPERAMIDE HCL 2 MG CAPSULE PO PRN (15:07)
[2019-04-11] MEDS ORDERED: MENTHOL/PHENOL 1 EACH UD MM PRN (15:07)
[2019-04-11] MEDS ORDERED: IBUPROFEN 400 MG TABLET (FP) PO PRN (15:07)
--- NOTE | 2019-04-11 15:07 | HP ---
[facility] Rehab Assess/Revision - Admission History Admitted to Rehab from[facility] - Findings Detox History & Physical reviewed: Yes Concur with findings: Yes Inpatient Rehab Admission - Rehab Decision to Admit Inpatient rehab admission?: Yes - Initial Determination Are CD services needed?: Yes Free of communicable disease: Yes Not in need of hospitalization: Yes - Rehab Admission Criteria Previous failed treatment: Yes Poor recovery environment: Yes Comorbidities: Yes Lacks judgement: Yes Patient is meeting Inpatient Rehab admission criteria:: Yes
[2019-04-11] MEDS: THIAMINE HCL 100 MG TABLET (FP) PO SCH (21:11)
[2019-04-11] MEDS: MELATONIN 5 MG TABLETS PO PRN (21:11)
[2019-04-12] MEDS: hydrOXYzine PAMOATE 50 MG CAPSULE (FP) PO PRN (06:50)
[2019-04-12] MEDS: guaiFENesin 200 MG/10 ML 10 ML UNIT-DOSE CUPS PO PRN (06:50)
[2019-04-12] MEDS: SULFAMETHOXAZOLE/TRIMETHOPRIM 800MG/160MG D.S. TABLET PO SCH (10:23)
[2019-04-12] MEDS: PRENATAL VITAMINS W/ FOLIC ACID TABLET (FP) PO SCH (10:23)
[2019-04-12] MEDS: NICOTINE 21 MG/24 HOURS TOPICAL PATCH TD SCH (10:23)
[2019-04-12] MEDS ORDERED: PT OWN MED DRAWER 7, Y5N ONE (10:30)
[2019-04-12] MEDS: THIAMINE HCL 100 MG TABLET (FP) PO SCH (21:51)
[2019-04-13] MEDS: hydrOXYzine PAMOATE 50 MG CAPSULE (FP) PO PRN ×2 (02:25→21:19)
[2019-04-13] MEDS ORDERED: PT OWN MED DRAWER 7, Y5N ONE (08:35)
[2019-04-13] MEDS: NICOTINE 21 MG/24 HOURS TOPICAL PATCH TD SCH (09:59)
[2019-04-13] MEDS: SULFAMETHOXAZOLE/TRIMETHOPRIM 800MG/160MG D.S. TABLET PO SCH (09:59)
[2019-04-13] MEDS: PRENATAL VITAMINS W/ FOLIC ACID TABLET (FP) PO SCH (09:59)
[2019-04-13] MEDS: NICOTINE POLACRILEX 4 MG GUM BUC PRN (10:00)
[2019-04-13] MEDS: DARUNAVIR/COB/EMTRI/TENOF (SYMTUZA) TABLET (NF) PO SCH (10:51)
[2019-04-13] MEDS ORDERED: PHENYLEPHRINE HCL/COCOA BUTTER SUPPOSITORY RC PRN (13:02)
[2019-04-13] MEDS: THIAMINE HCL 100 MG TABLET (FP) PO SCH (21:19)
[2019-04-13] MEDS: MELATONIN 5 MG TABLETS PO PRN (21:19)
[2019-04-14] MEDS: DARUNAVIR/COB/EMTRI/TENOF (SYMTUZA) TABLET (NF) PO SCH (10:19)
[2019-04-14] MEDS: PRENATAL VITAMINS W/ FOLIC ACID TABLET (FP) PO SCH (10:19)
[2019-04-14] MEDS: SULFAMETHOXAZOLE/TRIMETHOPRIM 800MG/160MG D.S. TABLET PO SCH (10:19)
[2019-04-14] MEDS: NICOTINE POLACRILEX 4 MG GUM BUC PRN (10:19)
[2019-04-14] MEDS: guaiFENesin 200 MG/10 ML 10 ML UNIT-DOSE CUPS PO PRN (10:19)
[2019-04-14] MEDS: NICOTINE 21 MG/24 HOURS TOPICAL PATCH TD SCH (10:19)
[2019-04-14] MEDS: THIAMINE HCL 100 MG TABLET (FP) PO SCH (21:57)
[2019-04-15] MEDS: hydrOXYzine PAMOATE 50 MG CAPSULE (FP) PO PRN (02:38)
[2019-04-15] MEDS ORDERED: PT OWN MED DRAWER 7, Y5N ONE (08:31)
[2019-04-15] MEDS: SULFAMETHOXAZOLE/TRIMETHOPRIM 800MG/160MG D.S. TABLET PO SCH (10:34)
[2019-04-15] MEDS: PRENATAL VITAMINS W/ FOLIC ACID TABLET (FP) PO SCH (10:34)
[2019-04-15] MEDS: NICOTINE 21 MG/24 HOURS TOPICAL PATCH TD SCH (10:34)
[2019-04-15] MEDS: DARUNAVIR/COB/EMTRI/TENOF (SYMTUZA) TABLET (NF) PO SCH (10:34)
[2019-04-15] MEDS ORDERED: COLLOIDAL OATMEAL 1 BAR EACH TP PRN (11:02)
--- NOTE | 2019-04-15 11:46 | PN ---
[facility] Progress Note Note: Patient presents with facial rash that he states he has had x months. Patient denies any recent changes in diet, medication but is using wall soap dispenser to wash face. Patient also c/o hemorrhoids with burning and itching to rectal area. No reports of rectal bleeding made. Vital Signs Temperature 98.7 F 04/15/19 06:50 Pulse Rate 112 H 04/15/19 06:50 Respiratory Rate 20 04/15/19 06:50 Blood Pressure 135/72 04/15/19 06:50 O2 Sat by Pulse Oximetry (%) PE: alert and oriented x 3 skin warm and dry, + facial redness to cheeks, forehead and chin. +PERRLA, EOMs intact bl ext full rom, amb ad areli A/P: hemorrhoids facial dermatitis will order hydrocortisone 0.5% cream to face BID x 7 days aveeno soap anusol rectal cream monitor clinically
[2019-04-15] MEDS: HYDROCORTISONE 2.5% TOPICAL CREAM 30 GM TUBE PR SCH (22:01)
[2019-04-15] MEDS: THIAMINE HCL 100 MG TABLET (FP) PO SCH (22:01)
[2019-04-15] MEDS: HYDROCORTISONE 0.5% TOPICAL CREAM 30 GM TUBE TP SCH (22:01)
[2019-04-16 07:03] VITALS: TEMP 98.8
[2019-04-16] MEDS ORDERED: PT OWN MED DRAWER 7, Y5N ONE ×2 (08:21→19:43)
[2019-04-16] MEDS: HYDROCORTISONE 0.5% TOPICAL CREAM 30 GM TUBE TP SCH ×2 (09:11→22:12)
[2019-04-16] MEDS: DARUNAVIR/COB/EMTRI/TENOF (SYMTUZA) TABLET (NF) PO SCH (09:12)
[2019-04-16] MEDS: PRENATAL VITAMINS W/ FOLIC ACID TABLET (FP) PO SCH (09:12)
[2019-04-16] MEDS: SULFAMETHOXAZOLE/TRIMETHOPRIM 800MG/160MG D.S. TABLET PO SCH (09:12)
[2019-04-16] MEDS: NICOTINE 21 MG/24 HOURS TOPICAL PATCH TD SCH (09:13)
[2019-04-16] MEDS: THIAMINE HCL 100 MG TABLET (FP) PO SCH (22:12)
[2019-04-16] MEDS: HYDROCORTISONE 2.5% TOPICAL CREAM 30 GM TUBE PR SCH (22:12)
[2019-04-17] MEDS: NICOTINE 21 MG/24 HOURS TOPICAL PATCH TD SCH (09:24)
[2019-04-17] MEDS: SULFAMETHOXAZOLE/TRIMETHOPRIM 800MG/160MG D.S. TABLET PO SCH (09:24)
[2019-04-17] MEDS: PRENATAL VITAMINS W/ FOLIC ACID TABLET (FP) PO SCH (09:24)
[2019-04-17] MEDS: DARUNAVIR/COB/EMTRI/TENOF (SYMTUZA) TABLET (NF) PO SCH (09:24)
[2019-04-17] MEDS: HYDROCORTISONE 0.5% TOPICAL CREAM 30 GM TUBE TP SCH ×2 (09:24→21:59)
[2019-04-17] MEDS: HYDROCORTISONE 2.5% TOPICAL CREAM 30 GM TUBE PR SCH (21:59)
[2019-04-17] MEDS: THIAMINE HCL 100 MG TABLET (FP) PO SCH (21:59)
[2019-04-18 06:40] VITALS: BP 116/88; PULSE 90
[2019-04-18] MEDS: SULFAMETHOXAZOLE/TRIMETHOPRIM 800MG/160MG D.S. TABLET PO SCH (10:04)
[2019-04-18] MEDS: DARUNAVIR/COB/EMTRI/TENOF (SYMTUZA) TABLET (NF) PO SCH (10:04)
[2019-04-18] MEDS: PRENATAL VITAMINS W/ FOLIC ACID TABLET (FP) PO SCH (10:04)
[2019-04-18] MEDS: NICOTINE 21 MG/24 HOURS TOPICAL PATCH TD SCH (10:04)
[2019-04-18] MEDS: NICOTINE POLACRILEX 4 MG GUM BUC PRN (10:06)
[2019-04-18] MEDS: HYDROCORTISONE 0.5% TOPICAL CREAM 30 GM TUBE TP SCH (14:35)
[2019-04-18] MEDS ORDERED: PT OWN MED DRAWER 7, Y5N ONE (14:42)
--- NOTE | 2019-04-18 15:11 | PN ---
[facility] Progress Note Note: Patient requested to be discharged from rehab after completing 7 days of treatment. Patient states his arthritis is "acting up" and he wants to see PCP. Patient offered to adjust as needed ibuprofen/APAP for pain relief but refused. Patient states " I want to see my own doctor because this is not getting better ". Patient explained risk factors of relapse with signing out AMA but refused to stay in treatment. Patient to follow up with [facility] in [place], [place] for MAT. Patient to make his own appointment with his manager of transportation. Patient is medically stable and denies SI/HI. Medications sent to [facility] pharmacy but rejected. Patient informed and pharmacy called. Patient states he will follow up with PCP in am and will contact pharmacy at that time. Vital Signs Temperature 98.8 F 04/18/19 06:39 Pulse Rate 90 04/18/19 06:39 Respiratory Rate 18 04/18/19 06:39 Blood Pressure 116/88 04/18/19 06:39 O2 Sat by Pulse Oximetry (%)
== END 2019-04-18 14:58 | disposition home or self-care (01) | DRG 772 ==
LOC: YASAS 12:30 → Y3W 12:31
PROVIDERS: ADMIT Neuromusculoskeletal Medicine & OMM; ATTEND Neuromusculoskeletal Medicine & OMM
PROC: HZ42ZZZ Group Counseling for Substance Abuse Treatment, Cognitive-Behavioral (ICD-10-PCS; principal; 2019-04-11)
DX: F11.20 Opioid dependence, uncomplicated (principal); F10.20 Alcohol dependence, uncomplicated; F14.20 Cocaine dependence, uncomplicated; F12.20 Cannabis dependence, uncomplicated; F34.1 Dysthymic disorder; Z21 Asymptomatic human immunodeficiency virus [HIV] infection status; L30.9 Dermatitis, unspecified; K64.9 Unspecified hemorrhoids; M17.0 Bilateral primary osteoarthritis of knee; R63.4 Abnormal weight loss; Z68.1 Body mass index [BMI] 19.9 or less, adult; Z99.89 Dependence on other enabling machines and devices